=== PATIENT | male | born 1960 | race Caucasian/White ===

== ENCOUNTER 2020-09-09 14:03 | Outpatient (CLI) | payer BC, SELFPAY ==
[2020-09-09 14:26] LABS: Basophils Percent Auto 0.7 % (0.2-1.2); Eosinophils Absolute Auto 0.2 K/mm3 (0-0.3); Eosinophils Percent Auto 4.8 % (0-4.4); Hematocrit 42.1 % (42.0-52.0); Hemoglobin 14.6 g/dL (14.0-18.0); Immature Granulocyte Absolute 0.02 K/mm3 (0.00-0.031); Immature Granulocyte Percent A 0.4 % (0-0.5); Lymphocytes Absolute Auto 0.91 K/mm3 (0.9-3.2); Mean Corpuscular HGB Conc 34.7 g/dl (32-36); Mean Corpuscular Hemoglobin 31.4 pg (26-34); Mean Corpuscular Volume 90.5 fl (80-100); Mean Platelet Volume 8.8 fl (7.4-10.4); Monocytes Absolute Auto 0.5 K/mm3 (0.1-0.6); Monocytes Percent Auto 10.4 % (2.6-8.5); Neutrophils Absolute Auto 2.9 K/mm3 (1.3-6.7); Neutrophils Percent Auto 63.7 % (45.5-73.1); Platelet Count Result 233 k/mm3 (150-375); Red Blood Count 4.65 M/mm3 (4.6-6.20); Red Cell Distribution Width 12.4 % (11.5-14.5); White Blood Count 4.5 K/mm3 (4.5-10.0)
[2020-09-09 17:05] LABS: Iron 189 ug/dL (49-181)
[2020-09-09 17:12] LABS: Alanine Aminotransferase 15 U/L (4-50); Albumin Level 4.5 g/dL (3.5-5.1); Alkaline Phosphatase 43 U/L (38-126); Anion Gap 9 mmol/L (8-16); Aspartate Amino Transferase 28 U/L (17-59); Bilirubin,Total 0.9 mg/dL (0.2-1.3); Blood Urea Nitrogen 9 mg/dL (9-20); Calcium 9.8 mg/dL (8.4-10.2); Carbon Dioxide 27 mmol/L (22-30); Chloride 104 mmol/L (98-107); Estimated Glomerular Filt Rate > 60; Glucose 91 mg/dL (75-110); Potassium 4.5 mmol/L (3.4-5.0); Sodium 140 mmol/L (137-145)
[2020-09-09 17:19] LABS: Percent Iron Saturation 58 % (20-50)
[2020-09-09 18:13] LABS: Folic Acid 11.1 ng/mL (2.76->20)
== END 2020-09-09 14:04 | disposition home or self-care (01) ==
PROVIDERS: PCP Internal Medicine; Visit Provider Internal Medicine Hematology & Oncology
DX: D72.819 Decreased white blood cell count, unspecified (principal)
CPT/HCPCS: 36415; 80053; 82607; 82728; 82746; 83540; 83550; 85025; 86038

== ENCOUNTER 2020-09-28 09:38 | Outpatient (CLI) | payer BC, SELFPAY ==
--- NOTE | ~2020-09-28 | US_ITS ---
EXAMINATION: US abdomen complete EXAM DATE: 09/28/2020 11:22 INDICATION: Leukopenia. TECHNIQUE: Multiple grayscale and Doppler images of the complete abdomen were obtained (by a technolo gist who performed the scan) and subsequently reviewed. There is no prior study for comparison. FINDINGS: The abdominal aorta is normal in caliber. Visualized portion IVC is patent. The pancreatic head a nd body are normal in appearance. The pancreatic tail is not visualized. Mildly echogenic liver parenchyma, hepatic steatosis. There are no focal liver lesions identified. There is no evidence of intrahepatic biliary duct dilation. Portal venous flow was seen in the hepa topedal, normal direction and has normal Doppler waveform. Common bile duct measures 2 mm, which is normal. The gallbladder wall is normal in thickness, with ex pected amount of distention. No sonographic evidence of pericholecystic fluid. There is no cholelit hiases. Technologist performing exam reports patient did not demonstrate sonographic Godinez's sign. Please note that this sign is less reliable in patients who have received pain medication. Right kidney: There is normal contour and echogenicity. It measures 9.9 x 5.0 x 5.3 centimeters. T here are no focal renal lesions identified. There is no hydronephrosis. Left kidney: There is normal contour and echogenicity. It measures 10.3 x 5.4 x 4.8 centimeters. Th ere is a 3.6 cm cyst. There is no hydronephrosis. The spleen measures 9.4 centimeters and is morphologically normal. IMPRESSION: 1. Unremarkable complete abdominal ultrasound exam. Reviewed, dictated and finalized at location [facility]. [facility]
== END 2020-09-28 09:39 | disposition home or self-care (01) ==
PROVIDERS: PCP Internal Medicine; Visit Provider Internal Medicine Hematology & Oncology
DX: D72.819 Decreased white blood cell count, unspecified (principal)
CPT/HCPCS: 76700

== ENCOUNTER 2023-03-02 12:52 | Outpatient (CLI) | payer BC, SELFPAY ==
[2023-03-02 13:21] LABS: Basophils Absolute Auto 0.1 K/mm3 (0.0-0.1); Basophils Percent Auto 0.7 % (0.2-1.2); Eosinophils Absolute Auto 0.3 K/mm3 (0-0.3); Eosinophils Percent Auto 4.2 % (0-4.4); Hematocrit 45.3 % (42.0-52.0); Hemoglobin 15.8 g/dL (14.0-18.0); Immature Granulocyte Absolute 0.02 K/mm3 (0.00-0.031); Immature Granulocyte Percent A 0.3 % (0-0.5); Lymphocytes Absolute Auto 1.01 K/mm3 (0.9-3.2); Lymphocytes Percent Auto 13.4 % (18.3-44.2); Mean Corpuscular HGB Conc 34.9 g/dl (32-36); Mean Corpuscular Hemoglobin 31.7 pg (26-34); Mean Platelet Volume 8.8 fl (7.4-10.4); Monocytes Absolute Auto 0.7 K/mm3 (0.1-0.6); Monocytes Percent Auto 9.3 % (2.6-8.5); Neutrophils Absolute Auto 5.5 K/mm3 (1.3-6.7); Neutrophils Percent Auto 72.1 % (45.5-73.1); Platelet Count Result 281 k/mm3 (150-375); Red Blood Count 4.98 M/mm3 (4.6-6.20); Red Cell Distribution Width 11.7 % (11.5-14.5); White Blood Count 7.6 K/mm3 (4.5-10.0)
[2023-03-02 14:53] LABS: Alanine Aminotransferase 28 U/L (6-50); Albumin Level 4.9 g/dL (3.5-5.1); Alkaline Phosphatase 96 U/L (38-126); Anion Gap 9 mmol/L (8-16); Aspartate Amino Transferase 29 U/L (17-59); Bilirubin,Total 0.9 mg/dL (0.2-1.3); Blood Urea Nitrogen 13 mg/dL (9-20); Calcium 9.7 mg/dL (8.4-10.2); Carbon Dioxide 27 mmol/L (22-30); Chloride 100 mmol/L (98-107); Estimated Glomerular Filt Rate > 60; Glucose 111 mg/dL (65-110); Potassium 4.5 mmol/L (3.4-5.0); Sodium 136 mmol/L (137-145)
[2023-03-02 15:54] LABS: Iron 139 ug/dL (49-181)
[2023-03-02 16:12] LABS: Percent Iron Saturation 52 % (20-50)
== END 2023-03-02 12:53 | disposition home or self-care (01) ==
LOC: ANHLAB 12:53
PROVIDERS: PCP Internal Medicine; Visit Provider Internal Medicine Hematology & Oncology
DX: E83.110 Hereditary hemochromatosis (principal)
CPT/HCPCS: 36415; 80053; 82728; 83540; 83550; 85025

== ENCOUNTER 2023-03-22 10:25 | Outpatient (CLI) | payer BC, SELFPAY | END 2023-04-05 09:22 | disposition home or self-care (01) | PROVIDERS: PCP Internal Medicine; Visit Provider Internal Medicine | DX: R73.9 Hyperglycemia, unspecified (principal); Z79.899 Other long term (current) drug therapy; Z12.5 Encounter for screening for malignant neoplasm of prostate | CPT/HCPCS: 80061; 83036; 84153; 84439; 84443; G0103 ==

== ENCOUNTER 2023-09-03 09:23 | Outpatient (CLI) | payer BC, SELFPAY ==
[2023-09-03 09:43] LABS: Basophils Percent Auto 0.8 % (0.2-1.2); Eosinophils Absolute Auto 0.4 K/mm3 (0-0.3); Eosinophils Percent Auto 8.1 % (0-4.4); Hematocrit 42.3 % (42.0-52.0); Immature Granulocyte Absolute 0.01 K/mm3 (0.00-0.031); Immature Granulocyte Percent A 0.2 % (0-0.5); Lymphocytes Absolute Auto 0.99 K/mm3 (0.9-3.2); Lymphocytes Percent Auto 18.6 % (18.3-44.2); Mean Corpuscular HGB Conc 35.5 g/dl (32-36); Mean Corpuscular Hemoglobin 32.7 pg (26-34); Mean Corpuscular Volume 92.2 fl (80-100); Mean Platelet Volume 8.6 fl (7.4-10.4); Monocytes Absolute Auto 0.6 K/mm3 (0.1-0.6); Monocytes Percent Auto 11.5 % (2.6-8.5); Neutrophils Absolute Auto 3.2 K/mm3 (1.3-6.7); Neutrophils Percent Auto 60.8 % (45.5-73.1); Platelet Count Result 180 k/mm3 (150-375); Red Blood Count 4.59 M/mm3 (4.6-6.20); Red Cell Distribution Width 11.9 % (11.5-14.5); White Blood Count 5.3 K/mm3 (4.5-10.0)
[2023-09-03 11:36] LABS: Iron 114 ug/dL (49-181)
[2023-09-03 11:41] LABS: Alanine Aminotransferase 28 U/L (6-50); Albumin Level 4.5 g/dL (3.5-5.1); Alkaline Phosphatase 68 U/L (38-126); Anion Gap 5 mmol/L (8-16); Aspartate Amino Transferase 28 U/L (17-59); Bilirubin,Total 0.6 mg/dL (0.2-1.3); Blood Urea Nitrogen 12 mg/dL (9-20); Calcium 9.3 mg/dL (8.4-10.2); Carbon Dioxide 29 mmol/L (22-30); Chloride 101 mmol/L (98-107); Estimated Glomerular Filt Rate > 60; Glucose 118 mg/dL (65-110); Potassium 4.7 mmol/L (3.4-5.0); Sodium 135 mmol/L (137-145)
[2023-09-03 11:50] LABS: Percent Iron Saturation 46 % (20-50)
== END 2023-09-03 09:24 | disposition home or self-care (01) ==
PROVIDERS: PCP Internal Medicine; Visit Provider Internal Medicine Hematology & Oncology
DX: E83.110 Hereditary hemochromatosis (principal)
CPT/HCPCS: 36415; 80053; 82728; 83540; 83550; 85025

== ENCOUNTER 2024-10-17 11:04 | Outpatient (CLI) | payer BC, SELFPAY ==
[2024-10-17 11:19] LABS: Basophils Absolute Auto 0.1 K/mm3 (0.0-0.1); Basophils Percent Auto 0.9 % (0.2-1.2); Eosinophils Absolute Auto 0.5 K/mm3 (0-0.3); Eosinophils Percent Auto 8.3 % (0-4.4); Hematocrit 43.9 % (42.0-52.0); Hemoglobin 15.7 g/dL (14.0-18.0); Immature Granulocyte Absolute 0.01 K/mm3 (0.00-0.031); Immature Granulocyte Percent A 0.2 % (0-0.5); Lymphocytes Absolute Auto 1.08 K/mm3 (0.9-3.2); Mean Corpuscular HGB Conc 35.8 g/dl (32-36); Mean Corpuscular Hemoglobin 32.6 pg (26-34); Mean Corpuscular Volume 91.3 fl (80-100); Mean Platelet Volume 8.5 fl (7.4-10.4); Monocytes Absolute Auto 0.6 K/mm3 (0.1-0.6); Monocytes Percent Auto 10.7 % (2.6-8.5); Neutrophils Absolute Auto 3.2 K/mm3 (1.3-6.7); Neutrophils Percent Auto 59.9 % (45.5-73.1); Platelet Count Result 212 k/mm3 (150-375); Red Blood Count 4.81 M/mm3 (4.6-6.20); Red Cell Distribution Width 11.9 % (11.5-14.5); White Blood Count 5.4 K/mm3 (4.5-10.0)
[2024-10-17 13:37] LABS: Iron 165 ug/dL (49-181)
[2024-10-17 13:38] LABS: Alanine Aminotransferase 40 U/L (6-50); Albumin Level 4.7 g/dL (3.5-5.1); Alkaline Phosphatase 84 U/L (38-126); Anion Gap 6 mmol/L (4-12); Aspartate Amino Transferase 61 U/L (17-59); Bilirubin,Total 0.9 mg/dL (0.2-1.3); Blood Urea Nitrogen 12 mg/dL (9-20); Calcium 9.7 mg/dL (8.4-10.2); Carbon Dioxide 29 mmol/L (22-30); Chloride 100 mmol/L (98-107); Estimated Glomerular Filt Rate > 60; Glucose 113 mg/dL (65-110); Potassium 4.8 mmol/L (3.4-5.0); Sodium 135 mmol/L (137-145)
[2024-10-17 13:47] LABS: Percent Iron Saturation 65 % (20-50)
== END 2024-10-17 11:05 | disposition home or self-care (01) ==
LOC: ANHLAB 11:06
PROVIDERS: PCP Internal Medicine; Visit Provider Internal Medicine Hematology & Oncology
DX: E83.110 Hereditary hemochromatosis (principal)
CPT/HCPCS: 36415; 80053; 82728; 83540; 83550; 85025

== ENCOUNTER 2025-04-23 10:06 | Outpatient (CLI) | payer BC, SELFPAY ==
--- OUTSIDE RECORDS SUMMARY | 2025-04-23 10:10 | XMS_ITS | Clinical Summary ---
Author Organization [facility] Address [address] [place] [phone] Care Team Providers Care Theoretical Physicist Name Role Phone Jamey Balderas MD Primary Care Provide r Allergies No known active allergies Medications aspirin 81 mg enteric coated tabletIndication s:cerebral ischemia Take 1 tablet (81 mg total) by mouth daily 02/21/2025 02/22/20 26 Active atorvastatin (LIPITOR) 40 mg tabletIndication s:Secondary Stroke Prevention Take 2 tablets (80 mg total) by mouth daily 02/21/2025 02/22/20 26 Active losartan (COZAAR) 50 mg tablet Take 1 tablet (50 mg total) by mouth daily 02/20/2025 02/21/20 26 Active isosorbide mononitrate ER (IMDUR) 30 mg 24 hr tablet Take 1 tablet (30 mg total) by mouth daily 02/20/2025 02/21/20 26 Active Active Problems Problem Noted Date Diagnosed Date Vision changes 02/19/2025 Encounters Date Type Department Care Team Description 03/16/2025 9:13 AM CDT - 03/16/2025 11:59 PM CDT Hospital Encounter [facility] ` [address] [place] [id number] Fatty (change of) liver, not elsewhere classified Discharge Disposition: Discharge to home or self care 02/19/2025 2:03 PM CDT - 02/20/2025 12:56 PM CDT Hospital Encounter [address] [phone] Austen Lewis MD Holder, Derek Lance, MD Vision changes (Primary Dx); Stenosis of cerebral artery Discharge Disposition: Discharge to home or self care 02/19/2025 Ophth Exam [facility] [address] [place] [phone] French Saenz MD from Last 3 Months Family History Medical History Relation Name Comments Cancer Other Family history of Cancer, unknown; Diabetes Other Family history of Diabetes mellitus; Heart disease Other Family history of Heart problems; Stroke Other Family history of Stroke; Relation Name Status Comments Other Social History Tobacco Use Types Packs/Day Years Used Date Smoking Tobacco: Never Smokeless Tobacco: Never Tobacco Cessation:Counseling Given: No PHQ-2 Answer Date Recorded PHQ-2 Total Score 0 02/20/2025 PHQ-9 Answer Date Recorded PHQ-9 Total Score 0 02/20/2025 Personal Safety Answer Date Recorded Have you ever been in or are you currently in a harmful physical or emotional relationship or is someone making you feel afraid or unsafe? 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 Gender Identity Not on file Sexual Orientation Not on file Obstetrics History Last Filed Vital Signs Vital Sign Reading Time Taken Comments Blood Pressure 158/85 02/20/2025 12:00 PM CDT Pulse 82 02/20/2025 12:00 PM CDT Temperature 36.8 C (98.2 F) 02/20/2025 12:00 PM CDT Respiratory Rate 18 02/20/2025 12:00 PM CDT Oxygen Saturation 96% 02/20/2025 12:00 PM CDT Inhaled Oxygen Concentration - - Weight 85.8 kg (189 lb 2.5 oz) 02/20/2025 6:45 A M CDT Height 180.3 cm (5' 11) 02/20/2025 6:45 AM CDT Body Mass Index 26.38 02/20/2025 6:45 AM CDT Plan of Treatment Health Maintenance Due Date Last Done Comments Colon Cancer Screening-Colonoscopy 1960 Hepatitis C Screening 1960 Prostate Cancer Screening-PSA 1960 Hepatitis B Screening 1978 Regular Well Visit/Exam 18-64 1978 Pneumococcal vaccine <65 (2 of 2 - PCV) 04/26/2009 04/26/2008 Zoster Vaccine (2 of 3) 03/16/2014 01/19/2014 Covid-19 Vaccine (3 - 2023-2 5 season) 2024 07/21/2021, 07/13/2021 Influenza Vaccine (Season Ended) 2025 10/28/2021, 09/23/2020, 09/22/2019, Additional history exists Depression Screening 02/19/2026 02/19/2025, 02/20/20 DTaP/Tdap/Td Vaccine (2 - Td or Tdap) 01/15/2028 01/15/2018 Procedures Procedure Name Priority Date/Time Associated Diagnosis Comments US RUQ Schedule Routine, Read Routine (OP Routine) 03/16/2025 10:18 AM CDT Fatty (change of) liver, not elsewhere classified TRANSTHORACIC ECHO (TTE) COMPLETE W DOPPLER/CF W CONTRAST Routine 02/20/2025 9:42 AM CDT DRUGS OF ABUSE SCREEN, URINE WITHOUT CONFIRMATION STAT 02/19/2025 9:59 PM CDT URINALYSIS AND REFLEX TO MICROSCOPIC AND CULTURE STAT 02/19/2025 9:59 PM CDT MRI BRAIN WO CONTRAST ED 02/19/2025 7:22 PM CDT CTA HEAD NECK W WO CONTRAST ED 02/19/2025 4:30 PM CDT POCUS OCULAR 02/19/2025 3:39 PM CDT TROPONIN I HIGH-SENSITIVITY 2-HOUR Timed 02/19/2025 2:22 PM CDT ECG 12-LEAD STAT 02/19/2025 1:[address] STROKE PROTOCOL WO CONTRAST Critical/Life-T hreatening 02/19/2025 12:44 PM CDT POCT GLUCOSE DEVICE Routine 02/19/2025 1 2:44 PM CDT POCT PROTHROMBIN TIME, WHOLE BLOOD Routine 02/19/2025 12:42 PM CDT HEMOGLOBIN A1C STAT 02/19/2025 12:38 PM CDT LIPID PANEL STAT 02/19/2025 12:38 PM CDT EGFR STAT 02/19/2025 12:38 PM CDT DIFFERENTIAL AUTO STAT 02/19/2025 12: 38 PM CDT TROPONIN I HIGH-SENSITIVITY SERIES (BASELINE, 2HR, 4HR, 6HR) STAT 02/19/2025 12:38 PM CDT APTT STAT 02/19/2025 12:38 PM CDT COMPREHENSIVE METABOLIC PANEL STAT 02/19/2025 12:38 PM CDT CBC WITH AUTO DIFFERENTIAL STAT 02/19/2025 12:38 PM CDT from Last 3 Months Results * US RUQ (03/16/2025 10:18 AM CDT) Anatomical Region Laterality Modality Abdomen N/A Ultrasound 03/16/2025 10:3 4 AM CDT Impressions 03/16/2025 10:34 AM CDT Increased echogenicity of the liver parenchyma, most consistent with hepatic steatosis. Electronically signed by: Shikha Palaciso M.D. Narrative 03/16/2025 10:34 AM CDT EXAMINATION: US RUQ HISTORY: The patient is a 64-year-old male who presents with a history of hepatic steatosis. TECHNIQUE: Transverse and sagittal images were obtained with grayscale imaging, color Doppler imaging and spectral waveform analysis. FINDINGS: The gallbladder is normal in appearance with no calculi within it. No gallbladder wall thickening is seen nor is any pericholecystic fluid noted. Biliary tree not dilated, with the common duct measuring 4.5 mm in diameter. The liver measures 16.7 cm in sagittal length. Echotexture is diffusely increased. No focal liver lesions seen. Portal vein patent with normal hepatopedal flow within it. Pancreas normal in size and echotexture. The right kidney measures 11.2 x 6.2 cm in size and has a normal sonographic appearance. The abdominal aorta and inferior vena cava are normal in appearance. No ascites seen. Procedure Note Shikha Palacios MD - 03/16/2025 EXAMINATION: US RUQ HISTORY: The patient is a 64-year-old male who presents with a history of hepatic steatosis. TECHNIQUE: Transverse and sagittal images were obtained with grayscale imaging, color Doppler imaging and spectral waveform analysis. FINDINGS: The gallbladder is normal in appearance with no calculi within it. No gallbladder wall thickening is seen nor is any pericholecystic fluid noted. Biliary tree not dilated, with the common duct measuring 4.5 mm in diameter. The liver measures 16.7 cm in sagittal length. Echotexture is diffusely increased. No focal liver lesions seen. Portal vein patent with normal hepatopedal flow within it. Pancreas normal in size and echotexture. The right kidney measures 11.2 x 6.2 cm in size and has a normal sonographic appearance. The abdominal aorta and inferior vena cava are normal in appearance. No ascites seen. IMPRESSION: Increased echogenicity of the liver parenchyma, most consistent with hepatic steatosis. Electronically signed by: Shikha Palacios M.D. us Caitlin Abel MD IMG US PROCEDURES Final R esult * TRANSTHORACIC ECHO (TTE) COMPLETE W DOPPLER/CF W CONTRAST (02/20/2025 9:42 AM CDT) Anatomical Region Laterality Modality Ultrasound 02/20/2025 9:01 AM CDT Narrative 02/20/2025 10:52 AM CDT [facility] [place] [address] Transthoracic Echocardiographic Report Patient Name: DAMON UERÑA Samira : 1960 (64y 4m) Gender: M Study Date: 02/20/2025 09:01:20 AM Ht(Inch): 71 Wt(Lb): 188.93 BSA: 2.07 Roadside Mechanic: Janiya Hilton RDCSPUNXSUTAWNEY AREA HOSPITALJames Location: [id number] Order Provider: SCOOTER KRISHNAMURTHY Heart Rate: 83 BMI: 26.35 BP: 136 / 74 Ref Provider: SCOOTER KRISHNAMURTHY PROCEDURES: Echocardiographic Report: Transthoracic complete echo with strain imaging and contrast, 2D, spectral and tissue Doppler, color flow Doppler, M-mode. Contrast: Contrast Enhancement was Employed: After initial imaging due to sub- optimal quality related to co-morbidity defined by patient's body habitus. 0.4 ml Optison Administered, (2.6 ml wasted). INDICATIONS: Stroke; follow-up. CONCLUSIONS: 1. Normal left ventricular cavity size with mild concentric LV remodeling. Grade I diastolic dysfunction (normal LA pressure). Low normal global longitudinal strain. 2. Normal right ventricular size and systolic function. 3. Normal aorta, LA, RA and IVC. 4. Mild TR and KY. Unable to assess PA pressure, likely normal. 5. No pericardial effusion. 6. No thrombus or vegetations seen. No PFO detected by color Doppler. COMPARISONS: No previous study available for comparison. ATTESTATION: I have personally reviewed and interpreted this study without fellow or resident. - DISCLAIMER: The study images and the final report will be retained in the patient chart by the Echo Laboratory for the legally required time period. This chart constitutes the legal record of any testing performed. FINDINGS: Left Ventricle: Normal left ventricular cavity size based on 2D measurements. Concentric LV remodeling. Grade I diastolic dysfunction (normal LA pressure). Low normal global longitudinal strain. The LV global strain is: -16.0 %. Right Ventricle: Normal right ventricular size. Normal right ventricular systolic function. Left Atrium: The left atrium is normal in size. Right Atrium: The right atrium is normal in size. Mitral Valve: Normal Mitral Valve Structure. Mitral valve leaflets appear mildly thickened. No mitral regurgitation. No stenosis present. Aortic Valve: Normal trileaflet aortic valve. Mildly thickened aortic valve leaflets. No aortic regurgitation. No aortic valve stenosis. The mean transaortic gradient is 3 mmHg. The aortic valve area by the continuity equation (using VTI) is 2.83 cm2. Aortic valve dimensionless index is 0.82. Tricuspid Valve: Normal tricuspid valve structure. Mild tricuspid regurgitation. No tricuspid valve stenosis. Pulmonic Valve: Normal pulmonic valve structure. Mild pulmonic regurgitation. No pulmonic valve stenosis present. Pericardium: Normal pericardium without pericardial effusion. Aorta: Normal aortic root size at sinuses of Valsalva. IVC: IVC is normal in size. The IVC was <2.1 cm and collapsibility >50%. (est. RA pressure 0-5 mmHg). PASP: Unable to determine PASP due to inadequate TR jet. Rhythm: Normal Sinus rhythm was seen during the study. MEASUREMENTS: 2D/MM Value Range Doppler Value Range LVIDd 2D 4.60 cm [ 4.20 - 5.80 ] AV Peak Marcus 1.1 m/s [ 1.0 - 1.7 ] LVIDs 2D 2.40 cm [ 2.50 - 4.00 ] AV Peak PG 4.84 mmHg IVSd 2D 1.12 cm [ 0.60 - 1.00 ] AV Mean PG 3 mmHg LVPWd 2D 1.13 cm [ 0.60 - 1.00 ] AV VTI 19.8 cm LV Thickness Ratio 1.0 LVOT Peak Marcus 0.8 m/s [ 0.7 - 1.1 ] LV FS 2D 47.88 % [ 25.00 - 43.00 ] LVOT Peak PG 2.56 mmHg LV Mass 2D 190.15 g LVOT Mean PG 2 mmHg LV Mass Index 2D 91.86 g/m2 LVOT VTI 16.2 cm RWT 0.49 LVOT Diam 2.10 cm LV GLS -16.0 % [ -25.0 - -18.0 ] WICHO VTI 2.83 cm2 LA Length 4C 5.34 cm LVOT/AV VTI 0.82 - Dimensionless index (DVI) LA Length 2C 5.38 cm MV E Peak Marcus 0.6 m/s [ 0.6 - 1.3 ] LA Volume BP 48.38 ml MV A Peak Marcus 0.7 m/s [ 1.0 - 1.2 ] LA Volume Index 23.37 ml/m2 [ 16.00 - 34.00 ] MV E/A 0.8 ratio [ 0.8 - 1.5 ] RV Base Dimen 2D 3.4 cm [ 2.5 - 4.2 ] MV Decel Time 251.32 msec [ 104.00 - 258.00 ] TAPSE 2.09 cm [ 1.71 - 5.00 ] Med E` Marcus 8.8 cm/sec [ 8.0 - 25.0 ] RA Volume 23.60 ml Lat E` Marcus 7.8 cm/sec [ 10.0 - 25.0 ] RA Volume Index 11.40 ml/m2 Average E/E` 7.23 AoR Diam 2D 3.40 cm [ 3.10 - 3.70 ] RV S` 13.67 cm/sec Ao Root Index 1.64 cm/m2 [ 1.00 - 2.00 ] Electronically Signed By: Josesito Guerra MD 02/20/2025 10:51:11 AM CDT Procedure Note Josesito Guerra MD - 02/20/2025 [facility] [place] [address] Transthoracic Echocardiographic Report Patient Name: DAMON UREÑA D : 1960 (64y 4m) Gender: M Study Date: 02/20/2025 09:01:20 AM Ht(Inch): 71 Wt(Lb): 188.93 BSA: 2.07 Roadside Mechanic: Janiya Hilton RDCS, RCCS Location: [id number] OrderProvider: SCOOTER KRISHNAMURTHY Heart Rate: 83 BMI: 26.35 BP: 136 / 74 Ref Provider: SCOOTER KRISHNAMURTHY PROCEDURES: Echocardiographic Report: Transthoracic complete echo with strain imagingand contrast, 2D, spectral and tissue Doppler, color flow Doppler, M-mode. Contrast: Contrast Enhancement was Employed: After initial imaging due tosub- optimal quality related to co-morbidity defined by patient's body habitus. 0.4 mlOptison Administered, (2.6 ml wasted). INDICATIONS: Stroke; follow-up. CONCLUSIONS: 1. Normal left ventricular cavity size with mild concentric LV remodeling.Grade I diastolic dysfunction (normal LA pressure). Low normal global longitudinalstrain. 2. Normal right ventricular size and systolic function. 3. Normal aorta, LA, RA and IVC. 4. Mild TR and KY. Unable to assess PA pressure, likely normal. 5. No pericardial effusion. 6. No thrombus or vegetations seen. No PFO detected by color Doppler. COMPARISONS: No previous study available for comparison. ATTESTATION: I have personally reviewed and interpreted this study without fellow orresident. - DISCLAIMER: The study images and the final report will be retained in the patientchart by the Echo Laboratory for the legally required time period. This chart constitutesthe legal record of any testing performed. FINDINGS: Left Ventricle: Normal left ventricular cavity size based on 2Dmeasurements. Concentric LV remodeling. Grade I diastolic dysfunction (normal LA pressure). Lownormal global longitudinal strain. The LV global strain is: -16.0 %. Right Ventricle: Normal right ventricular size. Normal right ventricularsystolic function. Left Atrium: The left atrium is normal in size. Right Atrium: The right atrium is normal in size. Mitral Valve: Normal Mitral Valve Structure. Mitral valve leaflets appearmildly thickened. No mitral regurgitation. No stenosis present. Aortic Valve: Normal trileaflet aortic valve. Mildly thickened aorticvalve leaflets. No aortic regurgitation. No aortic valve stenosis. The mean transaorticgradient is 3 mmHg. The aortic valve area by the continuity equation (using VTI) is 2.83 cm2.Aortic valve dimensionless index is 0.82. Tricuspid Valve: Normal tricuspid valve structure. Mild tricuspidregurgitation. No tricuspid valve stenosis. Pulmonic Valve: Normal pulmonic valve structure. Mild pulmonicregurgitation. No pulmonic valve stenosis present. Pericardium: Normal pericardium without pericardial effusion. Aorta: Normal aortic root size at sinuses of Valsalva. IVC: IVC is normal in size. The IVC was <2.1 cm and collapsibility >50%.(est. RA pressure 0-5 mmHg). PASP: Unable to determine PASP due to inadequate TR jet. Rhythm: Normal Sinus rhythm was seen during the study. MEASUREMENTS: 2D/MM Value Range DopplerValue Range LVIDd 2D 4.60 cm [ 4.20 - 5.80 ] AV Peak Vel1.1 m/s [ 1.0 - 1.7 ] LVIDs 2D 2.40 cm [ 2.50 - 4.00 ] AV Peak PG4.84 mmHg IVSd 2D 1.12 cm [ 0.60 - 1.00 ] AV Mean PG3 mmHg LVPWd 2D 1.13 cm [ 0.60 - 1.00 ] AV VTI19.8 cm LV Thickness Ratio 1.0 LVOT Peak Vel0.8 m/s [ 0.7 - 1.1 ] LV FS 2D 47.88 % [ 25.00 - 43.00 ] LVOT Peak PG2.56 mmHg LV Mass 2D 190.15 g LVOT Mean PG2 mmHg LV Mass Index 2D 91.86 g/m2 LVOT VTI16.2 cm RWT 0.49 LVOT Diam2.10 cm LV GLS -16.0 % [ -25.0 - -18.0 ] WICHO VTI2.83 cm2 LA Length 4C 5.34 cm LVOT/AV VTI0.82 - Dimensionless index (DVI) LA Length 2C 5.38 cm MV E Peak Vel0.6 m/s [ 0.6 - 1.3 ] LA Volume BP 48.38 ml MV A Peak Vel0.7 m/s [ 1.0 - 1.2 ] LA Volume Index 23.37 ml/m2 [ 16.00 - 34.00 ] MV E/A0.8 ratio [ 0.8 - 1.5 ] RV Base Dimen 2D 3.4 cm [ 2.5 - 4.2 ] MV Decel Tmjg618.32 msec [ 104.00 - 258.00 ] TAPSE 2.09 cm [ 1.71 - 5.00 ] Med E` Vel8.8 cm/sec [ 8.0 - 25.0 ] RA Volume 23.60 ml Lat E` Vel7.8 cm/sec [ 10.0 - 25.0 ] RA Volume Index 11.40 ml/m2 Average E/E`7.23 AoR Diam 2D 3.40 cm [ 3.10 - 3.70 ] RV S`13.67 cm/sec Ao Root Index 1.64 cm/m2 [ 1.00 - 2.00 ] Electronically Signed By: Josesito Guerra MD 02/20/2025 10:51:11 AM CDT us Scooter Krishnamurthy MD CV ECHO PROCEDURES Final R esult * (ABNORMAL) Urinalysis reflex to microscopic and culture Urine (02/19/2025 9:59 PM CDT) Color, ur Straw Yellow Clarity, ur Clear Clear [facility] Specific gravity, ur 1.037(H) 1.003 - 1.030 [facility] pH, urine 6.5 [facility] Comment: Interpretive Data U rine pH is affected by diet, medications, systemic acid-base disturbances, and renal tubular function. pH may affect urinary stone formation. For example, urine pH below 6.0 may help reduce the tendency for calcium phosphate stones and pH greater than 6.0 may reduce the tendency for uric acid stone formation. Source: [email or web address] Current Interpretive Data was last revised on 2017 Protein, ur ql Negative Negative [facility] Glucose, ur ql Negative Negative [facility] Ketones, ur Negative Negative [facility] Bilirubin, ur Negative Negative [facility] Blood, ur Negative Negative [facility] Urobilinogen, ur <2.0 <2.0 mg/dL [facility] Nitrite, ur Negative Negative [facility] Leukocyte esterase, ur Negative Negative [facility] UA reflex comment Reflex conditions for microscopic UA and culture not met. [facility] Urine 02/19/2025 9:59 PM CDT 02/19/2025 10:39 PM CDT us Scooter Krishnamurthy MD LAB MICROBIOLOGY - GENERAL ORDERABLES Final Result [facility] Department [place] [address] * Drugs of Abuse Screen, Urine without Confirmation (02/19/2025 9:59 PM CDT) Pathologist [facility] Amphetamine, ur Not Detected CutOff 500ng/mL Comment: Interpretive Data - Amphetamines: Samples containing greater than 500 ng/mL d-methamphetamine or other cross-reacting amphetamine compounds are reported as positive. Amphetamine immunoassays are subject to significant false positive rates due to cross-reactivity of non-amphetamine drugs. Confirmatory testing required for definitive results. Current Interpretive Data was last reviewed 2023. Barbiturates, ur Not Detected CutOff 200ng/mL [facility] Comment: Interpretive Data - Barbiturates: Samples containing greater than 200 ng/mL secobarbital or other cross-reacting barbiturate compounds are reported as positive. False positive and false negative results are possible. Confirmatory testing required for definitive results. Current Interpretive Data was last reviewed 2023. Benzodiazepines, ur Not Detected CutOff 100ng/mL [facility] Comment: Interpretive Data - Benzodiazepines: Samples containing greater than 100 ng/mL nordiazepam or other cross-reacting compounds are reported as positive. False positive and false negative results are possible. Confirmatory testing required for definitive results. Current Interpretive Data was last reviewed 2023. Cannabinoids, ur Not Detected CutOff 50 ng/mL [facility] Comment: Interpretive Data - Cannabinoids: Samples containing greater than 50 ng/mL delta-9 THC -COOH or other cross- reacting compounds are reported as positive. False positive and false negative results are possible. Confirmatory testing required for definitive results. Current Interpretive Data was last reviewed 2023. Cocaine, ur Not Detected CutOff 150ng/mL [facility] Comment: Interpretive Data - Cocaine: Samples containing greater than 150 ng/mL benzoylecgonine or other cross- reacting compounds are reported as positive. False positive and false negative results are possible. Confirmatory testing required for definitive results. Current Interpretive Data was last reviewed 2023. Fentanyl, Ur Not Detected CutOff 5 ng/mL [facility] Comment: Interpretive Data - Fentanyl: Samples containing greater than 5 ng/mL norfentanyl, fentanyl, or other cross-reacting fentanyl compounds are reported as positive. False positive and false negative results are possible. Confirmatory testing required for definitive results. Current Interpretive Data was last reviewed 2024. Methadone, ur Not Detected CutOff 300ng/mL [facility] Comment: Interpretive Data - Methadone: Samples containing greater than 300 ng/mL d,l-methadone or other cross-reacting compounds are reported as positive. False positive and false negative results are possible. Confirmatory testing required for definitive results. Current Interpretive Data was last reviewed 2023. Opiates, ur Not Detected CutOff 300ng/mL [facility] Comment: Interpretive Data - Opiates: Samples containing greater than 300 ng/mL morphine or other cross-reacting compounds are reported as positive. False positive and false negative results are possible. Confirmatory testing required for definitive results. Current Interpretive Data was last reviewed 2023. Oxycodone, ur Not Detected CutOff 100ng/mL [facility] Comment: Interpretive Data - Oxycodone: Samples containing greater than 100 ng/mL oxycodone or other cross-reacting compounds are reported as positive. False positive and false negative results are possible. Confirmatory testing required for definitive results. Current Interpretive Data was last reviewed 2023. Phencyclidine, ur Not Detected CutOff 25 ng/mL [facility] Comment: Interpretive Data - Phencyclidine: Samples containing greater than 25 ng/mL phencyclidine or other cross-reacting compounds are reported as positive. False positive and false negative results are possible. Confirmatory testing required for definitive results. Current Interpretive Data was last reviewed 2023. Urine Creatinine 66 mg/dL [facility] Comment: Interpretive Data Urine Creatinine: < 10 mg/dL is extremely dilute = or > 10 but < 20 mg/dL is dilute = or > 20 mg/dL is normal Current Interpretive Data was last revised on 2018. Urine 02/19/2025 9:59 PM CDT 02/19/2025 10:41 PM CDT Narrative [facility] - 02/19/2025 11:13 PM CDT Drug of Abuse screening is performed by immunoassay for medical purposes only. This is not to be used for Pain Management purposes. us Scooter Krishnamurthy MD LAB URINE ORDERABLES Final Result [facility] Department [place] [address] * MRI Brain WO Contrast (02/19/2025 7:22 PM CDT) Anatomical Region Laterality Modality Head and Neck N/A Magnetic Resonan ce 02/20/2025 9:39 AM CDT Impressions 02/20/2025 12:26 PM CDT No acute intracranial abnormality. Dictated by: Frank Wayne M.D. The radiology attending physician has personally reviewed this study, and had reviewed and/or edited this written report and agrees with it. Electronically signed by: Garrick Malcolm MD Narrative 02/20/2025 12:26 PM CDT EXAMINATION: Magnetic resonance imaging (MRI) of the brain and brainstem without contrast HISTORY: Right eye vision change TECHNIQUE: Multiplanar multi-weighted MRI of the brain and brainstem was performed without intravenous contrast using the general brain protocol. COMPARISON: Same-day CTA FINDINGS: The scalp and calvarium are normal. The superior sagittal sinus demonstrates normal venous flow. The corpus callosum is normal in shape and signal intensity. The posterior fossa is unremarkable. The pituitary and sella are normal. The brainstem and craniocervical junction are unremarkable. Diffusion weighted images reveal no hyperintensities to suggest acute cerebral infarction. The susceptibility weighted sequences reveal no evidence of acute or chronic hemorrhage. Diffuse cerebral atrophy with proportional ex vacuo ventricular dilatation. Minimal white matter T2/FLAIR hyperintensities are nonspecific but most commonly due to chronic small vessel ischemia. The paranasal sinuses are normal. The visualized portions of the mastoids are unremarkable. The orbits appear normal. Normal flow voids are demonstrated in the carotid arteries and basilar artery. Known left MACHINE I ENGRAVER stenosis better appreciated on CTA. Procedure Note Garrick Malcolm MD - 02/20/2025 EXAMINATION: Magnetic resonance imaging (MRI) of the brain and brainstem without contrast HISTORY: Right eye vision change TECHNIQUE: Multiplanar multi-weighted MRI of the brain and brainstem was performed without intravenous contrast using the general brain protocol. COMPARISON: Same-day CTA FINDINGS: The scalp and calvarium are normal. The superior sagittal sinus demonstrates normal venous flow. The corpus callosum is normal in shape and signal intensity. The posterior fossa is unremarkable. The pituitary and sella are normal. The brainstem and craniocervical junction are unremarkable. Diffusion weighted images reveal no hyperintensities to suggest acute cerebral infarction. The susceptibility weighted sequences reveal no evidence of acute or chronic hemorrhage. Diffuse cerebral atrophy with proportional ex vacuo ventricular dilatation. Minimal white matter T2/FLAIR hyperintensities are nonspecific but most commonly due to chronic small vessel ischemia. The paranasal sinuses are normal. The visualized portions of the mastoids are unremarkable. The orbits appear normal. Normal flow voids are demonstrated in the carotid arteries and basilar artery. Known left MACHINE I ENGRAVER stenosis better appreciated on CTA. IMPRESSION: No acute intracranial abnormality. Dictated by: Frank Wayne M.D. The radiology attending physician has personally reviewed this study, and had reviewed and/or edited this written report and agrees with it. Electronically signed by: Garrick Malcolm MD us Scooter Krishnamurthy MD IM MRI PROCEDURES Final R esult * CTA Head Neck W WO Contrast (02/19/2025 4:30 PM CDT) Anatomical Region Laterality Modality Head and Neck N/A Computed Tomogra phy 02/19/2025 4:43 PM CDT Impressions 02/19/2025 4:54 PM CDT 1. No acute intracranial hemorrhage or large vascular territory infract. 2. Severe stenosis of the left P1/P2 junction with segmental multifocal stenosis/thready opacification of distal left MACHINE I ENGRAVER branches. The above findings were communicated to Dr. Mar by Dr. Frank Wayne M.D. on 02/19/2025 4:42 PM. Dictated by: Frank Wayne M.D. The radiology attending physician has personally reviewed this study, and had reviewed and/or edited this written report and agrees with it. Electronically signed by: Iam Miranda MD Narrative 02/19/2025 4:54 PM CDT EXAMINATION: 1. Computed tomography angiography (CTA) of the head without and with contrast 2. Computed tomography angiography (CTA) of the neck with contrast HISTORY: Right vision loss TECHNIQUE: CT of the head was performed with images acquired from skull base to vertex without intravenous contrast. Computed tomographic angiography was obtained from the aortic arch to the vertex following the uneventful administration of intravenous contrast. 3D images of the CTA were generated on a dedicated workstation/traffic observer. Contrast information: 100 mL Optiray-350 IV COMPARISON: 02/19/2025 FINDINGS: HEAD: No acute intracranial hemorrhage. No mass effect or midline shift. The higgins-white differentiation is normal. Scattered white matter hypoattenuation is nonspecific but most commonly due to chronic small vessel ischemia. Diffuse cerebral atrophy with proportional ex vacuo ventricular dilatation. Orbits are normal. Paranasal sinuses are clear. NECK: 1 cm right thyroid nodule personal follow-up is required. The airway is patent. No cervical lymphadenopathy. The lung apices are clear. No suspicious osseous lesion. Multilevel cervical degenerative disc disease. CTA: The visualized aortic arch appears normal with normal configuration of the great vessels. The innominate artery and both subclavian arteries are normal in course and caliber. The common carotid arteries are normal in course and caliber with normal carotid bifurcations bilaterally. The course and caliber of the internal carotid arteries in the neck are normal. Mixed plaque at the carotid bifurcations without significant stenosis. Mixed plaque in the cavernous and communicating segment of the right internal carotid artery with mild stenosis. The ophthalmic arteries are patent. Moderate stenosis of the proximal right M1 segment. The anterior cerebral arteries are normal. The vertebral arteries are codominant. The basilar artery is normal. Severe stenosis of the left P1/P2 junction with segmental multifocal stenosis/thready opacification of distal left MACHINE I ENGRAVER There is no aneurysm or vascular malformation identified. Procedure Note Iam Miranda MD PhD - 02/19/2025 EXAMINATION: 1. Computed tomography angiography (CTA) of the head without and with contrast 2. Computed tomography angiography (CTA) of the neck with contrast HISTORY: Right vision loss TECHNIQUE: CT of the head was performed with images acquired from skull base to vertex without intravenous contrast. Computed tomographic angiography was obtained from the aortic arch to the vertex following the uneventful administration of intravenous contrast. 3D images of the CTA were generated on a dedicated workstation/traffic observer. Contrast information: 100 mL Optiray-350 IV COMPARISON: 02/19/2025 FINDINGS: HEAD: No acute intracranial hemorrhage. No mass effect or midline shift. The higgins-white differentiation is normal. Scattered white matter hypoattenuation is nonspecific but most commonly due to chronic small vessel ischemia. Diffuse cerebral atrophy with proportional ex vacuo ventricular dilatation. Orbits are normal. Paranasal sinuses are clear. NECK: 1 cm right thyroid nodule personal follow-up is required. The airway is patent. No cervical lymphadenopathy. The lung apices are clear. No suspicious osseous lesion. Multilevel cervical degenerative disc disease. CTA: The visualized aortic arch appears normal with normal configuration of the great vessels. The innominate artery and both subclavian arteries are normal in course and caliber. The common carotid arteries are normal in course and caliber with normal carotid bifurcations bilaterally. The course and caliber of the internal carotid arteries in the neck are normal. Mixed plaque at the carotid bifurcations without significant stenosis. Mixed plaque in the cavernous and communicating segment of the right internal carotid artery with mild stenosis. The ophthalmic arteries are patent. Moderate stenosis of the proximal right M1 segment. The anterior cerebral arteries are normal. The vertebral arteries are codominant. The basilar artery is normal. Severe stenosis of the left P1/P2 junction with segmental multifocal stenosis/thready opacification of distal left MACHINE I ENGRAVER There is no aneurysm or vascular malformation identified. IMPRESSION: 1. No acute intracranial hemorrhage or large vascular territory infract. 2. Severe stenosis of the left P1/P2 junction with segmental multifocal stenosis/thready opacification of distal left MACHINE I ENGRAVER branches. The above findings were communicated to Dr. Mar by Dr. Frank Wayne M.D. on 02/19/2025 4:42 PM. Dictated by: Frank Wayne M.D. The radiology attending physician has personally reviewed this study, and had reviewed and/or edited this written report and agrees with it. Electronically signed by: Iam Miranda MD Darell Mar MD IMG CT PROCEDURES Final Re sult * POCUS Ocular (02/19/2025 3:39 PM CDT) Anatomical Region Laterality Modality Other 02/19/2025 3:28 PM CDT Narrative 04/07/2025 12:46 AM CDT Performed by: Darell Mar Ocular : Exam Information: Exam type: Diagnostic Indication(s) for Exam: Vision change Findings: R Lens: Normally located R Vitreous body: Anechoic R Retinal contour: Normal R Optic nerve sheath diameter (ONSD): Normal Interpretation: No acute abnormalities identified Confirmatory study: Consult Electronically signed by Darell Mar on Monday, March 31, 2025 at 8:35 PM I have reviewed the images & the resident's interpretation. I agree with the findings. Images on file. Electronically signed by Austen Lewis on Monday, April 07, 2025 at 12:46 AM I have reviewed the images & the resident's interpretation. I agree with the findings. Images on file. Procedure Note Austen Lewis MD - 04/07/2025 Performed by: Darell Mar Ocular : Exam Information: Exam type: Diagnostic Indication(s) for Exam: Vision change Findings: R Lens: Normally located R Vitreous body: Anechoic R Retinal contour: Normal R Optic nerve sheath diameter (ONSD): Normal Interpretation: No acute abnormalities identified Confirmatory study: Consult Electronically signed by Darell Mar on Monday, March 31, 2025 at8:35 PM I have reviewed the images & the resident's interpretation. I agree withthe findings. Images on file. Electronically signed by Austen Lewis on Monday, April 07, 2025 at 12:46AM I have reviewed the images & the resident's interpretation. I agree withthe findings. Images on file. us Austen Lewis MD POCUS ORDERABLES Final Result * Troponin I high-sensitivity 2-hour (02/19/2025 2:22 PM CDT) Trop I hs 4 <=35 ng/L Comment: Interpretive Data For further hscTnI resources including the diagnostic algorithm and an aid in interpretation, copy and paste this link: https://bjhlab.testcatalog.org/show/[email or web address] Current Interpretive Data last revised 2020. Trop I hs delta 0 ng/L [facility] Trop I hs interp Insignificant [facility] Blood 02/19/2025 2:22 PM CDT 02/19/2025 2:32 PM CDT Josesito Dennison MD LAB BLOOD ORDERABLES Final Result Performing Organization Address [facility] de Phone Number [facility] Department [place] [address] * ECG 12-LEAD (02/19/2025 1:11 PM CDT) Narrative [facility] - 02/19/2025 1:11 PM CDT Josesito Dennison MD 02/19/2025 4:49 PM ECG 12 lead Date/Time: 02/19/2025 1:11 PM Performed by: Toña Thompsno MD Authorized by: Josesito Dennison MD Rate: ECG rate: 77 ECG rate assessment: normal Rhythm: Rhythm: sinus rhythm QRS: QRS axis: Normal Conduction: Conduction: normal ST segments: ST segments: Non-specific T waves: T waves: flattening Flattening: III Other findings: Other findings: poor R wave progression Previous ECG: Previous ECG: Unavailable Interpretation: Interpretation: non-specific Recommended Follow-up: Recommended follow up: further workup in the ED us Austen Lewis MD ECG ORDERABLES Final R esult Performing Organization Address [facility] Co de Phone Number [facility] * CT Stroke Head WO Contrast (02/19/2025 12:44 PM CDT) Anatomical Region Laterality Modality Head N/A Computed Tomogra phy 02/19/2025 1:02 PM CDT Impressions 02/19/2025 4:50 PM CDT No acute intracranial abnormality. The Critical results were discussed with Dr. Snow by Dr. Wayne on 02/19/2025 at 12:43 PM. Dictated by: Frank Wayne M.D. The radiology attending physician has personally reviewed this study, and had reviewed and/or edited this written report and agrees with it. Electronically signed by: Alfredo Mcghee MD Narrative 02/19/2025 4:50 PM CDT EXAMINATION: CT head without contrast HISTORY: Right sided vision change, headache TECHNIQUE: CT of the head was performed with images acquired from skull base to vertex without intravenous contrast. COMPARISON: None Available. FINDINGS: No acute intracranial hemorrhage. No mass effect or midline shift. The higgins-white differentiation is normal. Scattered white matter hypoattenuation is nonspecific but most commonly due to chronic small vessel ischemia. Diffuse cerebral volume loss with proportional ex vacuo ventricular dilatation. No acute calvarial fracture. Mild paranasal sinus disease. Mastoid air cells are clear. The orbits are normal. Procedure Note Alfredo Mcghee MD - 02/19/2025 EXAMINATION: CT head without contrast HISTORY: Right sided vision change, headache TECHNIQUE: CT of the head was performed with images acquired from skull base to vertex without intravenous contrast. COMPARISON: None Available. FINDINGS: No acute intracranial hemorrhage. No mass effect or midline shift. The higgins-white differentiation is normal. Scattered white matter hypoattenuation is nonspecific but most commonly due to chronic small vessel ischemia. Diffuse cerebral volume loss with proportional ex vacuo ventricular dilatation. No acute calvarial fracture. Mild paranasal sinus disease. Mastoid air cells are clear. The orbits are normal. IMPRESSION: No acute intracranial abnormality. The Critical results were discussed with Dr. Snow by Dr. Wayne on 02/19/2025 at 12:43 PM. Dictated by: Frank Wayne M.D. The radiology attending physician has personally reviewed this study, and had reviewed and/or edited this written report and agrees with it. Electronically signed by: Alfredo Mcghee MD Austen Lewis MD IMG CT PROCEDURES Final Result * POCT glucose (02/19/2025 12:44 PM CDT) [facility] Glucose, POC 110 70 - 199 mg/dL Blood 02/19/2025 12:4 4 PM CDT 02/19/2025 12:44 PM CDT Notinfile Unknown LAB POCT ORDERABLES - DEVICE F inal Result Performing Organization Address [facility] Co de Phone Number [facility] [place] [address] * POCT prothrombin time, whole blood (02/19/2025 12:42 PM CDT) [facility] PT, POC 11.4 10.6 - 13.5 sec INR, bld, POC 0.9 0.9 - 1.2 [facility] Blood 02/19/2025 12:4 2 PM CDT 02/19/2025 12:42 PM CDT Result [facility] Notinfile Unknown LAB POCT ORDERABLES - DEVICE F inal Result Performing Organization Address [facility] Co de Phone Number [facility] [place] [address] * Troponin I high-sensitivity series (baseline, 2hr, 4hr, 6hr) (02/19/2025 12:38 PM CDT) Pathologist [facility] Trop I hs <4 <=35 ng/L Comment: Code Blue Specimen Interpretive Data For further hscTnI resources including the diagnostic algorithm and an aid in interpretation, copy and paste this link: https://bjhlab.testcatalog.org/show/[email or web address] Current Interpretive Data last revised 2020. Blood 02/19/2025 12:3 8 PM CDT 02/19/2025 12:46 PM CDT Austen Lewis MD LAB BLOOD ORDERABLES Fi nal Result Performing Organization Address [facility] Co de Phone Number [facility] Department [place] [address] * eGFR (02/19/2025 12:38 PM CDT) eGFR >90 >=60 mL/min/1. 73 m2 Comment: Interpretive Data Reference Interval Normal >/= 90 mL/min/1.73m2 Mildly decreased* 60 - 89 mL/min/1.73m2 Mildly to moderately decreased 45 - 59 mL/min/1.73m2 Moderately to severely decreased 30 - 44 mL/min/1.73m2 Severely decreased 15 - 29 mL/min/1.73m2 Kidney Failure < 15 mL/min/1.73m2 *Relative to young adult level Estimated glomerular filtration rate is determined by the 2020 CKD-EPI equation recommended by the National Kidney Foundation (A Unifying Approach to GFR Estimation: Recommendations of the NKF-ASK Task Force on Reassessing the Inclusion of Race in Diagnosing Kidney Disease, JASN 2020). The CKD-EPI equation should not be used for patients with unstable renal function and has not been validated in children and those over 70. Current interpretive data was last reviewed 2021. Blood 02/19/2025 12:3 8 PM CDT 02/19/2025 12:46 PM CDT Austen Lewis MD LAB BLOOD ORDERABLES Fi nal Result Performing Organization Address City/[facility]/ZIP Co de Phone Number [facility] Department [place] [address] * Differential, auto (02/19/2025 12:38 PM CDT) Pathologist [facility] Neutrophil abs 3.9 1.5 - 6.5 K/cumm Imm gran abs 0.0 0.0 - 0.1 K/cumm [facility] Lymphocyte abs 1.4 0.8 - 3.3 K/cumm [facility] Monocyte abs 0.7 0.2 - 0.8 K/cumm [facility] Eosinophil abs 0.5 0.0 - 0.5 K/cumm [facility] Basophil abs 0.1 0.0 - 0.1 K/cumm [facility] Neutrophil pct 59.3 % [facility] Comment: Interpretive Data Percent cell count reference ranges are not reported, since discordance with absolute values may lead to misinterpretation of CBC data. Current Interpretive Data was last revised on 2018. Imm gran pct 0.5 % [facility] Comment: Interpretive Data Percent cell count reference ranges are not reported, since discordance with absolute values may lead to misinterpretation of CBC data. Current Interpretive Data was last revised on 2018. Lymphocyte pct 20.9 % [facility] Comment: Interpretive Data Percent cell count reference ranges are not reported, since discordance with absolute values may lead to misinterpretation of CBC data. Current Interpretive Data was last revised on 2018. Monocyte pct 11.2 % [facility] Comment: Interpretive Data Percent cell count reference ranges are not reported, since discordance with absolute values may lead to misinterpretation of CBC data. Current Interpretive Data was last revised on 2018. Eosinophil pct 7.2 % [facility] Comment: Interpretive Data Percent cell count reference ranges are not reported, since discordance with absolute values may lead to misinterpretation of CBC data. Current Interpretive Data was last revised on 2018. Basophil pct 0.9 % [facility] Comment: Interpretive Data Percent cell count reference ranges are not reported, since discordance with absolute values may lead to misinterpretation of CBC data. Current Interpretive Data was last revised on 2018. Blood 02/19/2025 12:3 8 PM CDT 02/19/2025 12:46 PM CDT us Austen Lewis MD LAB BLOOD ORDERABLES Fi nal Result [facility] Department [place] [address] * (ABNORMAL) CBC with auto differential (02/19/2025 12:38 PM CDT) Pathologist [facility] WBC 6.5 3.8 - 9.9 K/cumm Comment:Fiona Richardson Specimen Hgb 15.8 13.0 - 17.5 g/dL [facility] Hct 44.0 38.9 - 50.3 % [facility] Plt 221 150 - 400 K/cumm [facility] MPV 8.9(L) 9.1 - 12.3 fL [facility] RBC 4.93 4.30 - 5.80 M/cumm [facility] MCV 89.2 81.3 - 96.4 fL [facility] MCH 32.0 27.1 - 33.3 pg [facility] MCHC 35.9(H) 32.3 - 35.7 g/dL [facility] RDW CV 11.9 11.1 - 14.9 % [facility] RDW SD 38.3 35.7 - 48.1 fL [facility] NRBC abs 0.00 0.00 - 0.01 K/cumm [facility] Blood Venous blood specimen / Unknown 02/19/2025 12:38 PM CDT 02/19/2025 12:46 PM CDT Narrative [facility] - 02/19/2025 12:53 PM CDT Potential Stroke Patient us Austen Lewis MD LAB BLOOD ORDERABLES Fi nal Result [facility] Department [place] [address] * aPTT (02/19/2025 12:38 PM CDT) Pathologist [facility] aPTT 29 28 - 38 sec Comment: Fiona Blue Specimen Interpretive Data Heparin therapeutic range: 66.0 - 100.0 seconds. Range based on correlation with therapeutic heparin activity range of 0.3 - 0.7 Units/mL. Current interpretive data was last revised on 2023. Blood Venous blood specimen / Unknown 02/19/2025 12:38 PM CDT 02/19/2025 12:46 PM CDT Narrative [facility] - 02/19/2025 1:02 PM CDT Potential stroke patient. Austen Lewis MD LAB BLOOD ORDERABLES Fi nal Result Performing Organization Address [facility] [place] [address] * (ABNORMAL) Hemoglobin A1c (02/19/2025 12:38 PM CDT) Hgb A1C 5.9(H) 4.0 - 5.6 % Estimated Average Glucose 123 mg/dL [facility] Comment: The ADA recommends reporting an estimated Average Glucose (eAG) with all Hemoglobin A1c results using the equation derived from a study of 507 normal and diabetic adults. Minority populations were underrepresented and children were not included. (Diabetes Care 2020; 43(S1): S66-S76). The eAG is not equivalent to a fasting glucose. Blood 02/19/2025 12:3 8 PM CDT 02/19/2025 12:50 PM CDT us Scooter Krishnamurthy MD LAB BLOOD ORDERABLES Final Result Performing Organization Address [facility] [place] [address] * (ABNORMAL) Lipid panel (02/19/2025 12:38 PM CDT) Cholesterol 165 30 - 199 mg/dL Comment: Interpretive Data Ages < or = 19 years Acceptable: <170 mg/dL Borderline high: 170-199 mg/dL High: >or= 200 mg/dL Ages > or = 20 years Desirable: <200 mg/dL Borderline high: 200-239 mg/dL High: >or= 240 mg/dL Literature References: 1. Expert Panel on Integrated Guidelines for Cardiovascular Health and Risk Reduction in Children and Adolescents. Pediatrics 2011;128:S213 2. NCEP Expert Panel. Circulation 2004;110:227 Current Interpretive Data was last revised on 2018. Triglycerides 202(H) <=149 mg/dL [facility] Comment: Interpretive Data Ages < or = 9 years Acceptable: <75 mg/dL Borderline high: 75-99 mg/dL High: >or= 100 mg/dL Ages 10 to 20 years Acceptable: <90 mg/dL Borderline high: 90-129 mg/dL High: >or= 130 mg/dL Ages > or = 20 years Desirable: <150 mg/dL Borderline high: 150-199 mg/dL High: 200-499 mg/dL Very high: >or= 499 mg/dL Literature References: 1. Expert Panel on Integrated Guidelines for Cardiovascular Health and Risk Reduction in Children and Adolescents. Pediatrics 2011;128:S213 2. NCEP Expert Panel. Circulation 2004;110:227 Current Interpretive Data was last revised on 2018. HDL 42 >=40 mg/dL [facility] Comment: Interpretive Data Ages < or = 19 years Acceptable: >45 mg/dL Borderline low: 40-45 mg/dL Low: <40 mg/dL Ages > or = 20 years Desirable: >or= 60 mg/dL Low: <40 mg/dL Literature References: 1. Expert Panel on Integrated Guidelines for Cardiovascular Health and Risk Reduction in Children and Adolescents. Pediatrics 2011;128:S213 2. NCEP Expert Panel. Circulation 2004;110:227 Current Interpretive Data was last revised on 2018. LDL, calculated 89 <=129 mg/dL [facility] Comment: Interpretive Data Ages < or = 19 years Acceptable: <110 mg/dL Borderline high: 110-129 mg/dL High: >or= 130 mg/dL Ages > or = 20 years Optimal: <100 mg/dL Near optimal: 100-129 mg/dL Borderline high: 130-159 mg/dL High: >160 mg/dL Calculated using the Hai LDL-C estimating equation. This equation was implemented on 2024. Prior to this date LDL-C was estimated using the Friedewald equation. Literature References: 1. Expert Panel on Integrated Guidelines for Cardiovascular Health and Risk Reduction in Children and Adolescents. Pediatrics 2011;128:S213 2. NCEP Expert Panel. Circulation 2004;110:227 3. Hai Starks et al. RONAN Cardiol. 2019March 26;5(5):540-548. doi: [email or web address] Current Interpretive Data was last revised on 2024. Non-HDL Cholesterol 123 mg/dL [facility] Comment: Interpretive Data Ages < or = 19 years Acceptable: <120 mg/dL Borderline high: 120-144 mg/dL High: >145 mg/dL Ages > or = 20 years When triglycerides are >200 mg/dL, Non-HDL cholesterol is a secondary target of therapy with treatment goals that are 30 mg/dL greater than the LDL cholesterol target. Literature References: 1. Expert Panel on Integrated Guidelines for Cardiovascular Health and Risk Reduction in Children and Adolescents. Pediatrics 2011;128:S213 2. NCEP Expert Panel. Circulation 2004;110:227 Current Interpretive Data was last revised on 2018. Chol/HDL ratio 4 [facility] Blood 02/19/2025 12:3 8 PM CDT 02/19/2025 12:46 PM CDT us Scooter Krishnamurthy MD LAB BLOOD ORDERABLES Final Result [facility] Department [place] [address] * Comprehensive metabolic panel (02/19/2025 12:38 PM CDT) Sodium 135 135 - 145 mmol/L Comment:Code Blue Specimen Potassium, pl 4.4 3.3 - 4.9 mmol/L [facility] Comment:Code Blue Specimen Chloride 98 97 - 110 mmol/L [facility] Comment:Code Blue Specimen CO2 25 22 - 32 mmol/L [facility] Comment:Code Blue Specimen Anion gap 12 2 - 15 mmol/L [facility] Comment:Code Blue Specimen BUN 11 6 - 25 mg/dL [facility] Comment:Code Blue Specimen Creatinine 0.89 0.80 - 1.30 mg/dL [facility] Comment:Code Blue Specimen Glucose 113 70 - 199 mg/dL [facility] Comment: Code Blue Specimen Interpretive Data Fasting glucose >/= 126 mg/dl is diagnostic for diabetes. Fasting is defined as no caloric intake for at least 8 hours. Fasting glucose between 100 mg/dl to 125 mg/dl is diagnostic of prediabetes. In a patient with classic symptoms of hyperglycemia or hyperglycemic crisis, a random glucose >/= 200 mg/dl is diagnostic for diabetes. In the absence of unequivocal hyperglycemia, results should be confirmed by repeat testing. The classification and Diagnosis of Diabetes Diabetes Care 2021; 46: S19-S40. Current interpretive data was last revised 2022. Calcium 9.6 8.5 - 10.3 mg/dL [facility] Comment:Code Blue Specimen Bilirubin, total 0.5 0.1 - 1.2 mg/dL [facility] Comment:Code Blue Specimen Protein, pl 7.8 6.5 - 8.5 g/dL [facility] Comment:Code Blue Specimen Albumin 4.5 3.5 - 5.0 g/dL [facility] Comment:Code Blue Specimen Alk phos 77 40 - 130 Units/L [facility] Comment:Code Blue Specimen ALT 37 7 - 55 Units/L [facility] Comment:Code Blue Specimen AST 34 10 - 50 Units/L [facility] Comment:Code Blue Specimen Blood Venous blood specimen / Unknown 02/19/2025 12:38 PM CDT 02/19/2025 12:46 PM CDT Narrative [facility] - 02/19/2025 1:13 PM CDT Potential Stroke Patient us Austen Lewis MD LAB BLOOD ORDERABLES Fi nal Result [facility] Department [place] [address] from Last 3 Months Insurance [facility] ACCESS CHOICE [place] Advance Directives For more information, please contact: [phone] * Full Code (Latest Code Status on File) Date Activated Date Inactivated Comments 02/19/2025 9:18 PM 02/20/2025 5:01 PM Care Teams Theoretical Physicist Relationship Specialty Start Date End Date Jamey Balderas MD [address] [place] [address] [facility] - General 05/31/22
--- OUTSIDE RECORDS SUMMARY | 2025-04-23 10:11 | XMS_ITS | Clinical Summary ---
Author Organization [facility] Address [address] [place] [address] Care Team Providers Care Wool Handler Name Role Phone Unknown, Provider Primary Care Provider Unavaila ble Source Comments [facility],non-[facility] Affiliates and Associated Physician Practices is amultiple site organization consisting of ambulatory clinics and hospital sitesin [place], [place], [place] and [place]. This disclosure is being madepursuant to the Care Everywhere program and may not contain all information available regarding this patient. Last updated 18.[facility] Active Problems Problem Noted Date Diagnosed Date Fatty liver 03/12/2025 Encounters Date Type Department Care Team Description 03/12/2025 10:30 AM CDT Procedure visit [facility] [address] [place] [id number] Unknown, Provider NAFLD (nonalcoholic fatty liver disease) 03/12/2025 Orders Only [facility] [address] [place] [address] Caitlin Abel MD Fatty liver 03/06/2025 Travel from Last 3 Months Social History Tobacco Use Types Packs/Day Years Used Date Smoking Tobacco: Never Assessed Sex and Gender Information Value Date Recorded Sex Assigned at Not on file Legal Sex Male 8:17 AM CDT Gender Identity Not on file Sexual Orientation Not on file Plan of Treatment Health Maintenance Due Date Last Done Comments COLOGUARD (AGES 45-75) - COLON CA SCREENING 1960 COLON MONITORING 1960 COLONOSCOPY - COLON CA SCREENING 1960 CT COLONOGRAPHY - COLON CA SCREENING 1960 Colorectal Cancer Screening 1960 FIT - COLON CA SCREENING 1960 FLEX SIG - COLON CA SCREENING 1960 LIPID TESTING 1960 HIV SCREENING 1975 HEPATITIS C SCREENING 09/21/1978 DTAP/TDAP/TD VACCINES (1 - Tdap) 1979 PNEUMOCOCCAL VACCINE 50+ (1 of 1 - PCV) 2010 ZOSTER VACCINE (1 of 2) 2010 COVID-19 VACCINE (2 - season) 2024 07/13/2021 DEPRESSION SCREENING 11/26/2024 INFLUENZA VACCINE (Season Ended) 2025 09/22/2019, 09/09/2018, 09/18/2017, Additional history exists Respiratory Syncytial Virus (RSV) Vaccine Pt: or over 60 yrs (1 - 1-dose 75+ series) 2035 HEPATITIS B VACCINE Aged Out No longe r eligible based on patient's age to complete this topic HIB VACCINE Aged Out No longer eligi ble based on patient's age to complete this topic HPV VACCINE Aged Out No longer eligi ble based on patient's age to complete this topic MENINGOCOCCAL (Group B) VACCINE SHARED DECISION-MAKING Aged Out No longer eligible based on patient's age to complete this topic MENINGOCOCCAL GROUPS A/C/Y/W VACCINE Aged Out No longer eligible based on patient's age to complete this topic Procedures Procedure Name Priority Date/Time Associated Diagnosis Comments [place] LIVER ELASTOGRAPHY Routine 03/12/2025 10:34 AM CDT Fatty liver from Last 3 Months Results * [place] LIVER ELASTOGRAPHY (03/12/2025 10:34 AM CDT) Narrative Walt Gerardo MD - 03/12/2025 10:34 AM CDT Walt Gerardo MD 03/19/2025 10:21 PM Diagnosis: Fatty liver RN verified patient is NPO for prior 3 hours. Procedure explained. Date of Exam: 03/12/2025 Liver Stiffness: (LSM, kPa) median: 7.0 IQR/Median% (ideally < 30%): 20% CAP (controlled attenuation parameter): 301 Technical Difficulty: None Ordering Provider: Caitlin Abel MD Fibroscan interpretation: I have personally reviewed the Fibroscan report and associated tracings. The calculated Liver Stiffness Measurement (LSM, kPa) indicates that: The probability of advanced liver fibrosis is: low to moderate. The loss of ultrasound signal, (controlled attenuation parameter, CAP [dB/m]), indicates that the probability of hepatic steatosis is: high. Walt Stover MD The following criteria are used to indicate the probability of advanced (stage 3-4) fibrosis: < 7.0 kPa: low 7.0-8.9 kPa: low to moderate 9.0-14.9 kPa: moderate 15-20 kPa: high > 20 kPa: very high Liver stiffness > 12 kPa is associated with an increased risk of cirrhosis-related complications over the next 3-5 years (Jameier, 2022). Liver stiffness > 20 kPa is also associated with a high probability of complications of portal hypertension including varices and ascites. Liver stiffness > 50 kPa is associated with a high risk of variceal bleeding. These interpretations are based on the following published data: Moses J, Lanr m H, Eknoet M, Kwadwo C, Bonakamii M, Cure S, Ampuero J, Nasr P, Tallab L, Canivet CM, Kecharicks S, S nccandyz Y, Dinkatie E, Tony A, Ysabel M, Cali J, Mally A and Cramer-Pettit M. Non-invasive tests accurately stratify patients with NAFLD based on their risk of liver-related events. J Hepatol (2021) 76: 7298-0838. Praveen MIRANDA, Yvette M, Roxann M, et al. Accuracy of FibroScan controlled attenuation parameter and liver stiffness measurement in assessing steatosis and fibrosis in patients with nonalcoholic fatty liver disease. Gastroenterology 2019;156:7897-5488. Primo MS, Everette R, Van Natrenetta ML, et al. Vibration-controlled transient elastography to assess fibrosis and steatosis in patients with nonalcoholic fatty liver disease. Clin Gastroenterol Hepatol 2019;17:156-163. Note that scores have been developed that incorporate the Fibroscan liver stiffness measurement from large cohorts of patients with liver biopsies to further refine the ability of Fibroscan to identify patients with MASH and advanced fibrosis. These include the FAST (Fibroscan-AST) score (Quinten, 2021) and the Agile3+ and Agile4 scores (Anand, 2022; Mignon, 2023). Quinten TA, Dharmesh Dumas ML, Paula M, Alonzo A, et al. Validation of the accuracy of the FAST score for detecting patients with at-risk nonalcoholic steatohepatitis (CARMONA) in a [place] cohort and comparison to other non-invasive algorithms. PLoS ONE (2021) 17: [id number]. Anand DEVINE, Sal J, Justin ZM, et al. Enhanced diagnosis of advanced fibrosis and cirrhosis in individuals with NAFLD using FibroScan-based Agile scores. J Hepatol (2022) 78: 247-259. Mignon et al. Vibration-controlled transient elastography scores to predict liver-related events in steatotic liver disease. RONAN (2023) 331: 5149-7085 Fibroscan LSM can also be used with laboratory parameters without formulas to assess prognosis. According to the Baveno-VII criteria (Way, 2021), Fibroscan LSM <=15 kPa plus a platelet count of >=[id number]/L rules out clinically significant portal hypertension (sensitivity and negative predictive value >90%) in patients with compensated advanced chronic liver disease. Way R, Evonne J, Ze-Edin G, Manju T, Josh C on behalf of the Baveno VII Faculty. Baveno VII--Renewing consensus in portal hypertension. J Hepatol (2021) 76: 959-974 Assessing the likelihood of advanced fibrosis in patients with intermediate liver stiffness measurement (LSM) by Fibroscan (e.g., 8-15 kPa) can be improved by also calculating the FIB-4 score (Rosalino et al. Hepatology Communications 2019;3:3433-9066) or NAFLD Fibrosis score (Khan et al. Clinical Gastroenterology and Hepatology 2019;17:4419-1997 using routine clinical data. Notes: 1. Fibroscan cannot reliably identify earlier stages of fibrosis (ie distinguish F0 from F1 and F2) and thus a histologic stage cannot be predicted from the Fibroscan reading. 2. Liver stiffness can be increased by factors other than fibrosis including passive congestion, infiltrative processes, active alcoholism, recent moderate alcohol consumption in the 2 weeks before the exam, biliary obstruction and marked inflammation. The interpretation of the Fibroscan result provided above may not have taken such clinical factors into account. 3. Identifying steatosis by an elevated CAP score (> 250 db/m) is useful for establishing a diagnosis of steatotic liver disease. However the severity of steatosis does not correlate with liver related outcomes. Disease etiology also influences Fibroscan cutoff values for fibrosis stages and the following cutoffs have been proposed (Liset et al, Clin Gastro Hepatol 2015; 13:27-36): Cutoffs for Stage 3 and Stage 4 fibrosis respectively: Hepatitis B: >9 and >11.7 kPa Hepatitis C: >9.5 and >12.5 kPa HCV-HIV: >11 and >14 kPa Cholestatic liver diseases: >10 and >17.9 kPa MASLD/MASH: >10 and >14 kPa CAP estimates of steatosis: normal <200 dB/m mild 200 to 250 dB/m moderate 250-290 dB/m substantial > 290 dB/m (Note that Fibroscan is not a quantitative measure of liver fat.) These criteria are estimates and may change as additional supporting data becomes available. (This additional interpretive data was last updated 11/28/24.) [email or web address] Caitlin Abel MD PROCEDURE/MINOR SURGICAL ORDERAB LES Final Result from Last 3 Months Insurance ANTHEM Care Teams Wool Handler Relationship Specialty Start Date End Date Unknown, Provider PCP - General 03/12/25
--- OUTSIDE RECORDS SUMMARY | 2025-04-23 10:11 | XMS_ITS | Clinical Summary ---
Author Organization [facility] Address [address] [facility] [address] [place] [address] Phone Care Team Providers Care Wax Ball Knock Out Worker Name Role Phone French Woodruff DPM Unavailable [phone] Provider, None Primary Care Provider Unavailabl e Allergies No known active allergies Medications atorvastatin (LIPITOR) 20 MG Tablet Take 1 Tab by mouth daily. 90 Tab 1 04/25/2017 Active fenofibrate micronized (LOFIBRA) 200 MG Capsule Take 1 Cap by mouth daily. 90 Cap 3 04/25/2017 Active aspirin 81 MG Chewable Tablet Take 81 mg by mouth daily. Active Multiple Vitamins-Minera ls (MULTIVITAMIN PO) Take by mouth. Active clotrimazole-be tamethasone (LOTRISONE) 1-0.05 % CreamIndication s:Tinea pedis of both feet,Dermatitis of foot,Other eczema TOPICAL, apply to affected area twice daily 45 g 2 11/05/2017 Active aluminum chloride (DRYSOL) 20 % SolutionIndicat ions:Hyperhidro sis of soles Apply nightly. Use as directed. 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 Dyslipidemia 09/12/2015 Immunizations Immunization Administration Dates Next Due Influenza Vaccine greater than 3 yrs 09/18/2017, 08/26/2014 Pneumococcal Vaccine Adult - 23 Valent 8 Tetanus Toxoid, Unspecified Formulation 04/26/20 07 Family History Medical History Relation Name Comments Coronary Artery Disease Father Cancer Mother breast Coronary Artery Disease Mother Relation Name Status Comments Father Mother Social History Tobacco Use Types Packs/Day Years Used Date Smoking Tobacco: Never Smokeless Tobacco: Never Tobacco Cessation:Counseling Given: Yes Alcohol Use Standard Drinks/Week Comments Yes 21 (1 standard drink = 0.6 oz pu re alcohol) Sex and Gender Information Value Date Recorded Sex Assigned at Not on file Legal Sex Male 9:38 PM CDT Gender Identity Not on file Sexual Orientation Not on file Last Filed Vital Signs Vital Sign Reading Time Taken Comments Blood Pressure 125/70 11/21/2017 7:00 AM DIRECTOR TELEMETRY Pulse 76 11/21/2017 7:00 AM DIRECTOR TELEMETRY Temperature 36.4 C (97.6 F) 11/21/2017 7:00 AM DIRECTOR TELEMETRY Respiratory Rate 18 11/21/2017 7:00 AM DIRECTOR TELEMETRY Oxygen Saturation 95% 11/21/2017 7:00 AM DIRECTOR TELEMETRY Inhaled Oxygen Concentration - - Weight 81.6 kg (180 lb) 11/05/2017 9:00 AM DIRECTOR TELEMETRY Height 180.3 cm (5' 11) 11/05/2017 9:00 AM DIRECTOR TELEMETRY Body Mass Index 25.1 11/05/2017 9:00 AM DIRECTOR TELEMETRY Plan of Treatment Health Maintenance Due Date Last Done Comments Hepatitis C Virus (HCV) Screening 1960 TdaP Immunization 1960 Cologuard 2010 Immunochemical Fecal Occult Blood 2010 Pneumococcal Immunization (5 0+ years) (2 of 2 - PCV) 2010 04/26/2008 Zoster Immunization (1 of 2) 2010 Colonoscopy 08/23/2021 08/23/2011 Colorectal Cancer Screening 08/23/2021 Influenza Immunization (#1) 2024 1002/2017, 08/26/2014 SARS-COV-2 Immunization (1 - 2023-25 season) 2024 Respiratory Syncytial Virus (RSV) Immunization (Adult) (1 - 1-dose 75+ series) 2035 08/23/2011 Pneumococcal Immunization Combined Discontinued 04/26/2008 Hepatitis B Immunization Aged Out No longer eligible based on patient's age to complete this topic Meningococcal Immunization (ACWY) Aged Out No longer eligible based on patient's age to complete this topic Rotavirus Immunization Aged Out No lo nger eligible based on patient's age to complete this topic Procedures Procedure Name Priority Date/Time Associated Diagnosis Comments HM COLONOSCOPY Routine 08/23/2011 from Last 3 Months or Most Recently Relevant to Health Maintenance Results * COLONOSCOPY (08/23/2011) Ulysses Feldman DO PROCEDURE/MINOR SURGICAL ORDERA BLES Edited Result - Final from Last 3 Months or Most Recently Relevant to Health Maintenance Care Teams Wax Ball Knock Out Worker Relationship Specialty Start Date End Date Provider, None [place] PCP - General 05/11/21 French Woodruff DPM Podiatry 11/23/16
--- OUTSIDE RECORDS SUMMARY | 2025-04-23 10:11 | XMS_ITS | Clinical Summary ---
Author Organization [facility] Address [address] [place] [address] Care Team Providers Care Arresting Gear Operator Name Role Phone Paige Balderas MD Primary Care Provider Allergies No known active allergies Medications fenofibrate micronized (LOFIBRA) 200 mg Capsule 09/03/2020 Active aspirin (ECOTRIN EC) 81 mg Tablet, Delayed Release (E.C.) every 24 hours. Active multivitamin (Multiple Vitamins) tablet Take by mouth. Active Cholecalciferol, Vitamin D3, 50 mcg (2,000 unit) Capsule Take by mouth. Active zinc sulfate 110 mg (25 mg zinc) Tablet Take by mouth. Active atorvastatin (LIPITOR) 20 mg tablet 12/20/2020 Active vitamin E 400 unit capsule Take 400 Units by mouth daily. Active losartan (COZAAR) 50 mg tablet every 24 hours. 05/17/2022 Active Active Problems Problem Noted Date Diagnosed Date Hereditary hemochromatosis 11/10/2020 Leukopenia 09/09/2020 Encounters Date Type Department Care Team Description 03/12/2025 Abstract [facility] Oncology and Hematology - [place] [address] [place] [address] Jeremiah Shaw MD 02/03/2025 Orders Only [facility] Oncology and [facility]ematology - [place] [address] [place] [address] Jeremiah Shaw MD Hereditary hemochromatosis (Primary Dx) from Last 3 Months Family History Medical History Relation Name Comments Diabetes Brother 1 Healthy Brother 2 Healthy Daughter Heart Disease Father Stroke Father Cancer Mother Healthy Son Relation Name Status Comments Brother 1 Alive Brother 2 Alive Daughter Alive Father bypass Xr. Mother Alive Son Alive Social History Tobacco Use Types Packs/Day Years Used Date Smoking Tobacco: Never Smokeless Tobacco: Never Tobacco Cessation:Counseling Given: Not Answered Alcohol Use Standard Drinks/Week Comments Yes 1 (1 standard drink = 0.6 oz pur e alcohol) beer daily. Sex and Gender Information Value Date Recorded Sex Assigned at Not on file Legal Sex Male 5:26 AM SANITATION LEAD Gender Identity Not on file Sexual Orientation Not on file Last Filed Vital Signs Vital Sign Reading Time Taken Comments Blood Pressure 155/90 10/20/2024 10:10 AM SANITATION LEAD Pulse 75 10/20/2024 10:10 AM SANITATION LEAD Temperature 36.7 C (98 F) 10/20/2024 10:10 AM SANITATION LEAD Respiratory Rate 16 10/20/2024 10:10 AM SANITATION LEAD Oxygen Saturation 96% 10/20/2024 10:10 AM SANITATION LEAD Inhaled Oxygen Concentration - - Weight 86.2 kg (190 lb) 10/20/2024 10:10 AM SANITATION LEAD Height 180.3 cm (5' 11) 08/29/2022 12:05 PM CDT Body Mass Index 26.5 08/29/2022 12:05 PM CDT Plan of Treatment Upcoming Encounters Date Type Department Care Team (Late st Contact Info) Description 04/30/2025 3:30 PM CDT Office Visit [facility] Oncology and Hematology [facility] [address] [place] [address] [facility] [address] [place] [address] Jeremiah Shaw MD [address] [facility] [address] [place] [address] Health Maintenance Due Date Last Done Comments Pre-Diabetes and Diabetes Screening 1960 FIT-DNA Q 3 years 2005 FIT/FOBT Q 1 year 2005 Flex Sig/CT Colonography Q 5 years 2005 ZOSTER VACCINE (1 of 2) 2010 COLORECTAL SCREENING 08/23/2021 08/23/2011 Colorectal Cancer Screening 08/23/2021 INFLUENZA VACCINE (#1) 2024 9, 09/09/2018, 09/18/2017, Additional history exists Preventative Visit- Commercial 11/26/2024 DTAP/TDAP/TD VACCINES (2 - T d or Tdap) 01/15/2028 01/15/2018 RSV VACCINE (60+ or ) (1 - 1-dose 75+ series) 2035 Insurance [facility] BLUE PREFERRED Care Teams Arresting Gear Operator Relationship Specialty Start Date End Date Paige Balderas MD PCP - General Internal Medicine 08/27/20
--- OUTSIDE RECORDS SUMMARY | 2025-04-23 10:11 | XMS_ITS | Referral Summary ---
Author Organization [facility] Address [address] [place] [phone] Care Team Providers Care Marine Pipe Welder Name Role Phone Jamey Balderas MD Primary Care Provide r Encounters Date Type Department Care Team Description 03/16/2025 9:13 AM CDT - 03/16/2025 11:59 PM CDT Hospital Encounter [facility] ` [address] [place] [id number] Fatty (change of) liver, not elsewhere classified Discharge Disposition: Discharge to home or self care 02/19/2025 2:03 PM CDT - 02/20/2025 12:56 PM CDT Hospital Encounter [address] [phone] Austen Lewis MD Holder, Derek Lance, MD Vision changes (Primary Dx); Stenosis of cerebral artery Discharge Disposition: Discharge to home or self care 02/19/2025 Ophth Exam [facility] Ophthalmology [address] [place] [phone] French Saenz MD from Last 3 Months Allergies No known active allergies Medications aspirin [...] Noted Date Diagnosed Date Vision changes 02/19/2025 Social History Tobacco Use Types Packs/Day Years [...] on file 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 Electronically signed by: Shikha Palacios M.D. 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 4. Mild TR and MO. Unable to assess PA pressure, likely normal. 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 4. Mild TR and MO. Unable to assess PA pressure, likely normal. [...] [ 2.5 - 4.2 ] MV Decel [id number] msec [ 104.00 - 258.00 ] TAPSE [...] Josesito Guerra MD 02/20/2025 10:51:11 AM CDT Scooter Krishnamurthy MD CV ECHO PROCEDURES Final R esult * (ABNORMAL) Urinalysis reflex to microscopic and culture Urine (02/19/2025 9:59 PM CDT) Color, ur Straw Yellow Clarity, ur Clear Clear [facility] Specific gravity, ur 1.037(H) 1.003 - 1.030 [facility] pH, urine 6.5 [facility] Comment: Interpretive Data U rine pH is affected by diet, medications, systemic acid-base disturbances, and renal tubular function. pH may affect urinary stone formation. For example, urine pH below 6.0 may help reduce the tendency for calcium phosphate stones and pH greater than 6.0 may reduce the tendency for uric acid stone formation. Source: [facility] [employer] Current Interpretive Data was last revised on 2017 Protein, ur ql Negative Negative [facility] Glucose, ur ql Negative Negative [facility] Ketones, ur Negative Negative [facility] Bilirubin, ur Negative Negative [facility] Blood, ur Negative Negative [facility] Urobilinogen, ur <2.0 <2.0 mg/dL [facility] Nitrite, ur Negative Negative [facility] Leukocyte esterase, ur Negative Negative [facility] UA reflex comment Reflex conditions for microscopic UA and culture not met. [facility] Urine 02/19/2025 9:59 PM CDT 02/19/2025 10:39 PM CDT Scooter Krishnamurthy MD LAB MICROBIOLOGY - GENERAL ORDERABLES Final Result [facility] Department [place] [address] * Drugs of Abuse Screen, Urine without Confirmation (02/19/2025 9:59 PM CDT) Amphetamine, ur Not Detected CutOff 500ng/mL Comment: Interpretive Data - Amphetamines: Samples containing greater than 500 ng/mL d-methamphetamine or other cross-reacting amphetamine compounds are reported as positive. Amphetamine immunoassays are subject to significant false positive rates due to cross-reactivity of non-amphetamine drugs. Confirmatory testing required for definitive results. Current Interpretive Data was last reviewed 2023. Barbiturates, ur Not Detected CutOff 200ng/mL [facility] Comment: Interpretive Data - Barbiturates: Samples containing greater than 200 ng/mL secobarbital or other cross-reacting barbiturate compounds are reported as positive. False positive and false negative results are possible. Confirmatory testing required for definitive results. Current Interpretive Data was last reviewed 2023. Benzodiazepines, ur Not Detected CutOff 100ng/mL [facility] Comment: Interpretive Data - Benzodiazepines: Samples containing greater than 100 ng/mL nordiazepam or other cross-reacting compounds are reported as positive. False positive and false negative results are possible. Confirmatory testing required for definitive results. Current Interpretive Data was last reviewed 2023. Cannabinoids, ur Not Detected CutOff 50 ng/mL [facility] Comment: Interpretive Data - Cannabinoids: Samples containing greater than 50 ng/mL delta-9 THC -COOH or other cross- reacting compounds are reported as positive. False positive and false negative results are possible. Confirmatory testing required for definitive results. Current Interpretive Data was last reviewed 2023. Cocaine, ur Not Detected CutOff 150ng/mL [facility] Comment: Interpretive Data - Cocaine: Samples containing greater than 150 ng/mL benzoylecgonine or other cross- reacting compounds are reported as positive. False positive and false negative results are possible. Confirmatory testing required for definitive results. Current Interpretive Data was last reviewed 2023. Fentanyl, Ur Not Detected CutOff 5 ng/mL [facility] Comment: Interpretive Data - Fentanyl: Samples containing greater than 5 ng/mL norfentanyl, fentanyl, or other cross-reacting fentanyl compounds are reported as positive. False positive and false negative results are possible. Confirmatory testing required for definitive results. Current Interpretive Data was last reviewed 2024. Methadone, ur Not Detected CutOff 300ng/mL [facility] Comment: Interpretive Data - Methadone: Samples containing greater than 300 ng/mL d,l-methadone or other cross-reacting compounds are reported as positive. False positive and false negative results are possible. Confirmatory testing required for definitive results. Current Interpretive Data was last reviewed 2023. Opiates, ur Not Detected CutOff 300ng/mL [facility] Comment: Interpretive Data - Opiates: Samples containing greater than 300 ng/mL morphine or other cross-reacting compounds are reported as positive. False positive and false negative results are possible. Confirmatory testing required for definitive results. Current Interpretive Data was last reviewed 2023. Oxycodone, ur Not Detected CutOff 100ng/mL [facility] Comment: Interpretive Data - Oxycodone: Samples containing greater than 100 ng/mL oxycodone or other cross-reacting compounds are reported as positive. False positive and false negative results are possible. Confirmatory testing required for definitive results. Current Interpretive Data was last reviewed 2023. Phencyclidine, ur Not Detected CutOff 25 ng/mL [facility] Comment: Interpretive Data - Phencyclidine: Samples containing greater than 25 ng/mL phencyclidine or other cross-reacting compounds are reported as positive. False positive and false negative results are possible. Confirmatory testing required for definitive results. Current Interpretive Data was last reviewed 2023. Urine Creatinine 66 mg/dL [facility] Comment: Interpretive Data Urine Creatinine: < 10 mg/dL is extremely dilute = or > 10 but < 20 mg/dL is dilute = or > 20 mg/dL is normal Current Interpretive Data was last revised on 2018. Urine 02/19/2025 9:59 PM CDT 02/19/2025 10:41 PM CDT Narrative [facility] - 02/19/2025 11:13 PM CDT Drug of Abuse screening is performed by immunoassay for medical purposes only. This is not to be used for Pain Management purposes. us Scooter Krishnamurthy MD LAB URINE ORDERABLES Final Result [facility] Department [place] [address] * MRI Brain WO Contrast (02/19/2025 7:22 [...] carotid arteries and basilar artery. Known left VESSEL ENGINEER stenosis better appreciated on CTA. Procedure Note [...] carotid arteries and basilar artery. Known left VESSEL ENGINEER stenosis better appreciated on CTA. IMPRESSION: No acute intracranial abnormality. Dictated by: Frank Wayne M.D. The radiology attending physician has personally reviewed this study, and had reviewed and/or edited this written report and agrees with it. Electronically signed by: Garrick Malcolm MD us Scooter Krishnamurthy MD IMG MRI PROCEDURES Final R esult * CTA Head Neck W WO Contrast (02/19/2025 4:30 PM CDT) Anatomical Region Laterality Modality Head and Neck N/A Computed Tomogra phy 02/19/2025 4:43 PM CDT Impressions 02/19/2025 4:54 PM CDT 1. No acute intracranial hemorrhage or large vascular territory infract. 2. 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 The above findings were communicated to Dr. Mar by Dr. Frank Wayne M.D. on 02/19/2025 4:42 PM. Dictated by: Frank Wayne M.D. The radiology attending physician has personally reviewed this study, and had reviewed and/or edited this written report and agrees with it. Electronically signed by: MD Boyd Stern 02/19/2025 4:54 PM CDT EXAMINATION: 1. Computed [...] segmental multifocal stenosis/thready opacification of distal left VESSEL ENGINEER There is no aneurysm or vascular malformation [...] segmental multifocal stenosis/thready opacification of distal left VESSEL ENGINEER There is no aneurysm or vascular malformation identified. IMPRESSION: 1. No acute intracranial hemorrhage or large vascular territory infract. 2. 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 The above findings were communicated to [...] 2020. Trop I hs delta 0 ng/L KIMMY MILLER Trop I hs interp Insignificant KIMMY Chang Blood 02/19/2025 2:22 PM CDT 02/19/2025 2:32 PM CDT us Josesito Dennison MD LAB BLOOD ORDERABLES Final Result [facility] Department [place] [address] * ECG 12-LEAD (02/19/2025 1:11 PM CDT) Narrative [facility] - 02/19/2025 1:11 PM CDT Josesito Dennison MD 02/19/2025 4:49 PM ECG 12 lead Date/Time: 02/19/2025 1:11 PM Performed by: Toña Thompson MD Authorized by: Josesito Dennison MD Rate: [...] Lewis MD ECG ORDERABLES Final R esult [facility] * CT Stroke Head WO Contrast [...] * POCT glucose (02/19/2025 12:44 PM CDT) Glucose, POC 110 70 - 199 mg/dL Blood 02/19/2025 12:4 4 PM CDT 02/19/2025 12:44 PM CDT us Notinfile Unknown LAB POCT ORDERABLES - DEVICE F inal Result [facility] Department [place] [address] * POCT prothrombin time, whole blood (02/19/2025 12:42 PM CDT) PT, POC 11.4 10.6 - 13.5 sec INR, bld, POC 0.9 0.9 - 1.2 [facility] Blood 02/19/2025 12:4 2 PM CDT 02/19/2025 12:42 PM CDT Notinfile Unknown LAB POCT ORDERABLES - DEVICE F inal Result Performing Organization Address [facility] Co de Phone Number [facility] Department [place] [address] * Troponin I high-sensitivity series (baseline, 2hr, 4hr, 6hr) (02/19/2025 12:38 PM CDT) Trop I hs <4 <=35 ng/L Comment: Code Blue Specimen Interpretive Data For further hscTnI resources including the diagnostic algorithm and an aid in interpretation, copy and paste this link: https://bjhlab.testcatalog.org/show/hsTrop-1 Current Interpretive Data last revised 2020. Blood 02/19/2025 12:3 8 PM CDT 02/19/2025 12:46 PM CDT Austen Lewis MD LAB BLOOD ORDERABLES Fi nal Result Performing Organization Address [facility] Co de Phone Number [facility] Department [place] [address] * eGFR (02/19/2025 12:38 PM CDT) eGFR [...] of Race in Diagnosing Kidney Disease, JASN 202). The CKD-EPI equation should not be used for patients with unstable renal function and has not been validated in children and those over 70. Current interpretive data was last reviewed 2021. Blood 02/19/2025 12:3 8 PM CDT 02/19/2025 12:46 PM CDT us Austen Lewis MD LAB BLOOD ORDERABLES Fi nal Result [facility] Department [place] [address] * Differential, auto (02/19/2025 12:38 PM CDT) Neutrophil abs 3.9 1.5 - 6.5 K/cumm Imm gran abs 0.0 0.0 - 0.1 K/cumm [facility] Lymphocyte abs 1.4 0.8 - 3.3 K/cumm [facility] Monocyte abs 0.7 0.2 - 0.8 K/cumm [facility] Eosinophil abs 0.5 0.0 - 0.5 K/cumm [facility] Basophil abs 0.1 0.0 - 0.1 K/cumm [facility] Neutrophil pct 59.3 % [facility] Comment: Interpretive Data Percent cell count reference ranges are not reported, since discordance with absolute values may lead to misinterpretation of CBC data. Current Interpretive Data was last revised on 2018. Imm gran pct 0.5 % [facility] Comment: Interpretive Data Percent cell count reference ranges are not reported, since discordance with absolute values may lead to misinterpretation of CBC data. Current Interpretive Data was last revised on 2018. Lymphocyte pct 20.9 % [facility] Comment: Interpretive Data Percent cell count reference ranges are not reported, since discordance with absolute values may lead to misinterpretation of CBC data. Current Interpretive Data was last revised on 2018. Monocyte pct 11.2 % [facility] Comment: Interpretive Data Percent cell count reference ranges are not reported, since discordance with absolute values may lead to misinterpretation of CBC data. Current Interpretive Data was last revised on 2018. Eosinophil pct 7.2 % [facility] Comment: Interpretive Data Percent cell count reference ranges are not reported, since discordance with absolute values may lead to misinterpretation of CBC data. Current Interpretive Data was last revised on 2018. Basophil pct 0.9 % [facility] Comment: Interpretive Data Percent cell count reference ranges are not reported, since discordance with absolute values may lead to misinterpretation of CBC data. Current Interpretive Data was last revised on 2018. Blood 02/19/2025 12:3 8 PM CDT 02/19/2025 12:46 PM CDT us Austen Lewis MD LAB BLOOD ORDERABLES Fi nal Result [facility] Department [place] [address] * (ABNORMAL) CBC with auto differential (02/19/2025 12:38 PM CDT) WBC 6.5 3.8 - 9.9 K/cumm Comment:Code Blue Specimen Hgb 15.8 13.0 - 17.5 g/dL [facility] Hct 44.0 38.9 - 50.3 % [facility] Plt 221 150 - 400 K/cumm [facility] MPV 8.9(L) 9.1 - 12.3 fL [facility] RBC 4.93 4.30 - 5.80 M/cumm [facility] MCV 89.2 81.3 - 96.4 fL [facility] MCH 32.0 27.1 - 33.3 pg [facility] MCHC 35.9(H) 32.3 - 35.7 g/dL [facility] RDW CV 11.9 11.1 - 14.9 % [facility] RDW SD 38.3 35.7 - 48.1 fL [facility] NRBC abs 0.00 0.00 - 0.01 K/cumm [facility] Blood Venous blood specimen / Unknown 02/19/2025 12:38 PM CDT 02/19/2025 12:46 PM CDT Narrative [facility] - 02/19/2025 12:53 PM CDT Potential Stroke Patient Austen Lewis MD LAB BLOOD ORDERABLES Fi nal Result Performing Organization Address [facility] de Phone Number [facility] [place] [address] * aPTT (02/19/2025 12:38 PM CDT) Pathologist [facility] aPTT 29 28 - 38 sec Comment: Code Blue Specimen Interpretive Data Heparin therapeutic range: 66.0 - 100.0 seconds. Range based on correlation with therapeutic heparin activity range of 0.3 - 0.7 Units/mL. Current interpretive data was last revised on 2023. Blood Venous blood specimen / Unknown 02/19/2025 12:38 PM CDT 02/19/2025 12:46 PM CDT Narrative [facility] - 02/19/2025 1:02 PM CDT Potential stroke patient. Austen Lewis MD LAB BLOOD ORDERABLES Fi nal Result Performing Organization Address [facility] de Phone Number [facility] [place] [address] * (ABNORMAL) Hemoglobin A1c (02/19/2025 12:38 PM CDT) Pathologist [facility] Hgb A1C 5.9(H) 4.0 - 5.6 % Estimated Average Glucose 123 mg/dL [facility] Comment: The ADA recommends reporting an [...] Krishnamurthy MD LAB BLOOD ORDERABLES Final Result [facility] [place] [address] * (ABNORMAL) Lipid panel (02/19/2025 12:38 PM [...] revised on 2018. Triglycerides 202(H) <=149 mg/dL [facility] Comment: Interpretive Data Ages < or = [...] revised on 2018. HDL 42 >=40 mg/dL [facility] Comment: Interpretive Data Ages < or = [...] on 2018. LDL, calculated 89 <=129 mg/dL [facility] Comment: Interpretive Data Ages < or = [...] 3. Hai Starks et al. RONAN Cardiol. 2020 March 26;5(5):540-548. doi: 10.1001/jamacardio.2020.0013 Current Interpretive Data was last revised on 2024. Non-HDL Cholesterol 123 mg/dL [facility] Comment: Interpretive Data Ages < or = [...] last revised on 2018. Chol/HDL ratio 4 [facility] Blood 02/19/2025 12:3 8 PM CDT 02/19/2025 12:46 PM CDT us Scooter Krishnamurthy MD LAB BLOOD ORDERABLES Final Result [facility] Department [place] [address] * Comprehensive metabolic panel (02/19/2025 12:38 PM CDT) Sodium 135 135 - 145 mmol/L Comment:Code Blue Specimen Potassium, pl 4.4 3.3 - 4.9 mmol/L [facility] Comment:Code Blue Specimen Chloride 98 97 - 110 mmol/L [facility] Comment:Code Blue Specimen CO2 25 22 - 32 mmol/L [facility] Comment:Code Blue Specimen Anion gap 12 2 - 15 mmol/L [facility] Comment:Code Blue Specimen BUN 11 6 - 25 mg/dL [facility] Comment:Code Blue Specimen Creatinine 0.89 0.80 - 1.30 mg/dL [facility] Comment:Code Blue Specimen Glucose 113 70 - 199 mg/dL [facility] Comment: Code Blue Specimen Interpretive Data [...] classification and Diagnosis of Diabetes Diabetes Care 202; 46: S19-S40. Current interpretive data was last revised 2022. Calcium 9.6 8.5 - 10.3 mg/dL [facility] Comment:Code Blue Specimen Bilirubin, total 0.5 0.1 - 1.2 mg/dL [facility] Comment:Code Blue Specimen Protein, pl 7.8 6.5 - 8.5 g/dL [facility] Comment:Code Blue Specimen Albumin 4.5 3.5 - 5.0 g/dL [facility] Comment:Code Blue Specimen Alk phos 77 40 - 130 Units/L [facility] Comment:Code Blue Specimen ALT 37 7 - 55 Units/L [facility] Comment:Code Blue Specimen AST 34 10 - 50 Units/L [facility] Comment:Code Blue Specimen Blood Venous blood specimen / Unknown 02/19/2025 12:38 PM CDT 02/19/2025 12:46 PM CDT Narrative [facility] - 02/19/2025 1:13 PM CDT Potential Stroke Patient us Austen Lewis MD LAB BLOOD ORDERABLES Fi nal Result [facility] [place] [address] from Last 3 Months Insurance [employer] ACCESS CHOICE CHOICE [facility] [place] Advance Directives For more information, please contact: [phone] * Full Code (Latest Code Status on File) Date Activated Date Inactivated Comments 02/19/2025 9:18 PM 02/20/2025 5:01 PM Care Teams Marine Pipe Welder Relationship Specialty Start Date End Date Jamey Balderas MD [address] [address] PCP - General 05/31/22
--- OUTSIDE RECORDS SUMMARY | 2025-04-23 10:11 | XMS_ITS | Data Portability ---
Author Organization [place] [facility], Main Office Address [address] [place] [address] Care Team Providers Care Representative Phlebotomy Services Name Role Phone PAIGE BALDERAS Primary Care Provider PAIGE BALDERAS Referring Provider Assessment Encounter Date Assessment Date Assessment LastModified by Organization Details LastModified Time 01/07/2024 01/07/2024 01/05/2023: TSH: WNL Lipids: WNL CMP: Gluc 111 A1C 5.5 CBC: WNL PSA 0.61 07/05/2023: Gluc 106 A1C 5.6 12/28/2023: TG 178 Gluc 111 Not available 01/07/2024 11:20:59 07/07/2024 07/07/2024 01/05/2023: TSH: WNL Lipids: WNL CMP: Gluc 111 A1C 5.5 CBC: WNL PSA 0.61 07/05/2023: Gluc 106 A1C 5.6 12/28/2023: TG 178 Gluc 111 07/01/2024: TG 129 A1C 5.7 Not available 07/07/2024 12:03:18 01/19/2025 01/19/2025 01/05/2023: TSH: WNL Lipids: WNL CMP: Gluc 111 A1C 5.5 CBC: WNL PSA 0.61 07/05/2023: Gluc 106 A1C 5.6 12/28/2023: TG 178 Gluc 111 07/01/2024: TG 129 A1C 5.7 07/08/2024: PSA 0.67 01/13/2025: A1C 5.9 TG 193 Gluc 108 Not available 01/19/2025 12:58:36 03/09/2025 03/09/2025 01/05/2023: TSH: WNL Lipids: WNL CMP: Gluc 111 A1C 5.5 CBC: WNL PSA 0.61 07/05/2023: Gluc 106 A1C 5.6 12/28/2023: TG 178 Gluc 111 07/01/2024: TG 129 A1C 5.7 07/08/2024: PSA 0.67 01/13/2025: A1C 5.9 TG 193 Gluc 108 Not available 03/09/2025 12:03:23 Plan of Treatment Reminders Order Date Submit Date Provider Last Modified By Organization Details Last Modified Time Details Appointments Follow Up 15 2024 11:00A Tereza khalil MD Not available Not available Not available Any 15 2024 11:00A Tereza khalil MD Not available Not available Not available Lab HbA1c (hemoglob in A1c), blood 2024 025 [employer] [facility], [address], [place], [address], 03/09/2025 12:03:29 microalbu min, urine 2024 025 [employer] [facility], [address], [place], [address], 03/09/2025 12:03:31 PSA, serum or plasma 2024 025 [employer] [facility], [address], [place], [address], 03/09/2025 12:03:31 CMP, serum or plasma 2024 025 [employer] [facility], [address], [place], [address], 03/09/2025 12:03:30 CBC w/ auto diff 2024 025 [employer] [facility], [address], [place], [address], 03/09/2025 12:03:30 T4, free, serum 2024 025 [employer] [facility], [address], [place], [address], 03/09/2025 12:03:32 TSH, serum or plasma 2024 025 [employer], [address], [place], [address], 03/09/2025 12:03:29 lipid panel, serum 2024 025 [employer], [address], [place], [address], 03/09/2025 12:03:28 HbA1c (hemoglob in A1c), blood 2024 025 [employer] [facility], [address], [place], [address], 01/19/2025 13:07:31 microalbu min, urine 2024 025 [employer] [facility], [address], [place], [address], 01/19/2025 13:07:31 PSA, serum or plasma 2024 025 [employer] [facility], [address], [place], [address], 01/19/2025 13:07:29 CMP, serum or plasma 2024 025 [facility] [facility], [address], [place], [address], 01/19/2025 13:07:30 CBC w/ auto diff 2024 025 [facility] [facility], [address], [place], [address], 01/19/2025 13:07:34 T4, free, serum 2024 025 [employer], [address], [place], [address], 01/19/2025 13:07:32 TSH, serum or plasma 2024 025 [facility] [facility], [address], [place], [address], 01/19/2025 13:07:33 lipid panel, serum 2024 025 [facility] [facility], [address], [place], [address], 01/19/2025 13:07:33 HbA1c (hemoglob in A1c), blood 2023 024 [place] [address] [employer] [facility], [address], [place], [address], 01/06/2025 08:57:53 microalbu min, urine 2023 024 [place] [address] [employer] [facility], [address], [place], [address], 01/06/2025 08:57:54 PSA, serum or plasma 2023 024 [employer] [facility], [address], [place], [address], 07/09/2024 12:28:17 CMP, serum or plasma 2023 024 [employer] [facility], [address], [place], [address], 10/17/2024 15:46:55 CBC w/ auto diff 2023 024 [employer] [facility], [address], [place], [address], 10/17/2024 15:46:55 T4, free, serum 2023 024 [email or web address] [facility], [address], [place], [address], 01/06/2025 08:57:53 TSH, serum or plasma 2023 024 [email or web address] [facility], [address], [place], [address], 01/06/2025 08:57:53 lipid panel, serum 2023 024 [email or web address] [facility], [address], [place], [address], 01/06/2025 08:57:53 CMP, serum or plasma 2023 024 [employer] [facility], [address], [place], [address], 03/21/2024 12:21:27 CBC w/ auto diff 2023 024 [employer] [facility], [address], [place], [address], 05/02/2024 12:56:20 T4, free, serum 2023 024 [email or web address] [facility], [address], [place], [address], 07/09/2024 09:46:08 TSH, serum or plasma 2023 024 [email or web address], [address], [place], [address], 07/09/2024 09:46:08 lipid panel, serum 2023 024 [place] [address] [employer], [address], [place], [address], 07/09/2024 09:46:08 HbA1c (hemoglob in A1c), blood 2023 024 [place] [address] [employer] [facility], [address], [place], [address], 07/09/2024 09:46:08 microalbu min, urine 2023 024 [place] [address] [employer] [facility], [address], [place], [address], 07/09/2024 09:46:08 Referral podiatris t referral - Please call patient to schedule an appointme nt. Thank you. 2024 025 SONIA Jimenez DPM, [address] [facility] [address], [place], [address], 03/09/2025 16:30:21 otolaryng ologist referral - Please call patient to schedule an appointme nt. Thank you. 2024 025 DA Rajput MD, [address], [place], [address], 03/09/2025 15:05:25 hematolog ist referral - Please call patient to schedule an appointme nt. Thank you. 2024 025 DA Shaw MD, [address], [place], [address], 03/09/2025 15:15:25 podiatris t referral - Please call patient to schedule an appointme nt. Thank you. 2024 025 SONIA Jimenez DPM, [address], [place], [address], 04/23/2025 04:19:32 hematolog ist referral - Please call patient to schedule an appointme nt. Thank you. 2024 025 tram Shaw MD, [address], [place], [address], 02/20/2025 09:59:08 podiatris t referral 2023 024 [email or web address] Sidney Jimenez DPM, [address], [address], [place], [address], 01/06/2025 08:00:38 pulmonolo gist referral 2023 024 [place], [address] [facility], [address], [place], [address], 07/11/2024 09:29:05 gastroent erologist referral 2023 024 [email or web address] Caitlin Abel MD, [address], [address], [place], [address], 08/04/2024 09:54:56 cardiolog ist referral 2023 024 [email or web address] Cameron Mahan MD, [address], [address], [place], [address], 01/06/2025 08:00:37 urologist referral 2023 024 [email or web address] Olman Maurer MD, [address], [address], [place], [address], 11/03/2024 09:02:48 podiatris t referral 2023 024 [email or web address] Jimenez DPM, [address], [address], [place], [address], 07/09/2024 09:46:21 pulmonolo gist referral 2023 024 [email or web address] [place], [address], [address], [place], [address], 08/04/2024 09:54:04 gastroent erologist referral 2023 024 [email or web address] Caitlin Abel MD, [address], [address], [place], [address], 02/04/2024 15:11:10 cardiolog ist referral 2023 024 [email or web address] Cameron Mahan MD, [address] [facility], [address], [place], [address], 08/04/2024 09:53:52 Procedures cerumen removal (PROC) 2024 025 Not available 03/12/2025 15:02:07 Surgeries None recorded. Imaging CT, chest, w/o contrast [address] ([facility]), [address] [place], [address], 01/19/2025 11:26:55 CT, chest, w/o contrast 2023 024 [facility] ([facility]), [address] [place], [address], 01/08/2024 10:48:07 Medication Orders None recorded. Patient TargetsNo targets recorded. Patient Instructions Encounter Date Encounter Id Patient Instructions Last Modified By Organization Details Last Modified Time 01/07/2024 [id number] diabetic eye exam* [email or web address] Not available 07/09/2024 09:45:44 03/09/2025 [id number] diabetic eye exam* [email or web address] Not available 03/09/2025 14:55:20 03/12/2025 [id number] advised use of weekly Debrox to aid in softening cerumen. Follow-up in 6 months to 1 year for routine ear cleaning. He will contact the office at a later date. [email or web address] Not available 03/12/2025 15:02:41 Reason for Referral Machine Operator Packaging Referral for Es sential hypertension Referring Physician: Paige Balderas Internal Medicine, Encounter Date: 01/07/2024 Welding Manager Referral for Hype rglycemia Referring Physician: Paige Balderas Internal Medicine, Encounter Date: 01/07/2024 Senior Office Assistant Referral for S olitary nodule of lung Referring Physician: Jacey Yeung Medicine, Encounter Date: 01/07/2024 Client Portfolio Manager Referral for Liver function test above reference range Referring Physician: Jacey Yeung Medicine, Encounter Date: 01/07/2024 Urologist Referral for Cysti tis Referring Physician: Jacey Yeung Medicine, Encounter Date: 01/07/2024 Machine Operator Packaging Referral for Es sential hypertension Referring Physician: Jacey Yeung Medicine, Encounter Date: 07/07/2024 Welding Manager Referral for Hype rglycemia Referring Physician: Jacey Yeung Medicine, Encounter Date: 07/07/2024 Senior Office Assistant Referral for S olitary nodule of lung Referring Physician: Jacey Yeung Medicine, Encounter Date: 07/07/2024 Client Portfolio Manager Referral for Liver function test above reference range Referring Physician: Jacey Yeung Medicine, Encounter Date: 07/07/2024 Welding Manager Referral for Hype rglycemia Please call patient to schedule an appointment. Thank you. Referring Physician: Jacey Yeung, Encounter Date: 01/19/2025 Please call patient to sched ule an appointment. Thank you. Referring Physician: Paige Balderas, Internal Medicine, Encounter Date: 01/19/2025 Welding Manager Referral for Hype rglycemia Please call patient to schedule an appointment. Thank you. Referring Physician: Paige Balderas, Internal Medicine, Encounter Date: 03/09/2025 Please call patient to sched ule an appointment. Thank you. Referring Physician: Paige Balderas, Internal Medicine, Encounter Date: 03/09/2025 Farm Equipment Mechanic Apprentice Referral fo r Impacted cerumen of bilateral ears Please call patient to schedule an appointment. Thank you. Referring Physician: Paige Balderas, Internal Medicine, Encounter Date: 03/09/2025 Results Created Date Observation Date Name Description Value Unit Range Abnormal Flag Note LastModifiedBy Organization Detail LastModifiedTime 01/08/20 24 11/27/2023 CT, chest , w/o contr ast No observ ation record ed. [facility] ([facility]) [address] [place], [address], 03/05/2025 11:16:47 Result Notes None recorded. Problems Name Problem SNOMED Code Status Onset Date Resolution Date Notes Provider Name and Address Organization Details Recorded Time Renewal of prescripti on Active 2021 Not Available [facility] 3 05:10:56 Hyperlipid emia 19284154 Active 2017 Not Available [employer] 3 05:10:56 Hyperglyce meera 23777648 Active 2021 Not Available [facility] 3 05:10:56 Pain of right wrist 4905387203761 00 Active 2022 DRU Carlos, [facility] [employer] [facility] 3 16:11:18 Osteoarthr itis of wrist 743514257 Active 2022 DRU Carlos, [place] Demario [facility] 3 16:11:30 Arthritis of right wrist 7830968357007 103 Active 2022 Bakari Christine MD [address], [address], [place], [address] , [facility] 3 12:40:47 Leukopenia 35861838 Active 2022 Paige howell MD [address], [address], [place], [address] , [facility] 3 18:20:02 Liver function test above reference range 777199756 Active 2022 Paige howell MD [address], [address], [place], [address] , [facility] 3 18:20:10 Essential hypertensi on 76919241 Active 2022 Paige howell MD [address], [address], [place], [address] , [facility] 3 18:20:14 Solitary nodule of lung 707878529 Active 2022 Paige howell MD [address], [address], [place], [address] , [facility] 3 18:20:21 Ganglion cyst of right hand 9966534709897 07 Active 2022 Paige howell MD [address], [address], [place], [address] , [facility] 3 18:20:34 Abdominal pain 10639641 Active 2022 Ladi cai [place] [facility] 3 13:30:23 Increased frequency of urination 879676753 Active 2022 Ladi cai [place] [facility] 3 13:31:21 Acute cystitis 50852647 Active 2022 Ladi cai [place] [facility] 3 14:30:48 Cystitis 36722614 Active 2023 Paige howell MD [address], [address], [place], [address] , [facility] 4 11:26:03 Tinea corporis 23657281 Active 2023 Paige howell MD [address], [address], [place], [address] , [facility] 4 14:07:31 Skin lesion 22886403 Active 2023 Kierra Denise MA null, [facility] 4 16:12:52 Prediabete s 346865953 Active 2024 Paige howell MD [address], [address], [place], [address] , [facility] 5 12:58:44 Erectile dysfunctio n 748288806 Active 2024 DRU Navarro null, [facility] 5 17:41:46 Transient cerebral ischemia 741210056 Active 2024 Paige howell MD [address], [place], [address] , [facility] 5 11:48:44 Impacted cerumen of bilateral ears 6419953518772 108 Active 2024 Paige howell MD [address], [place], [address] , [facility] 5 12:08:30 Problem Notes None recorded. Procedures Surgical History Date Name Laterality Status Provider Name and Address Organization Details Recorded Time Dental completed Not Available [facility] 11/2022 05:05:00 Imaging Results None recorded. Procedure Notes None recorded. Medical Equipment None Reported. Allergies No known drug allergies Medications Name Sig Start Date Stop Date Status Note LastModified by Organization Details LastModified Time losartan 50 mg tablet TAKE 1 TABLET BY MOUTH DAILY active Not Available Not Available No t Available amoxicillin 500 mg capsule bid 05/04 completed Not Available Not Available Not Available aspirin 81 mg capsule Take by oral route. 01/15 completed Not Available Not Available Not Available atorvastati n 40 mg tablet TAKE 1 TABLET BY MOUTH DAILY DIRECTED active Not Available Not Available No t Available doxycycline hyclate 100 mg capsule TAKE 1 CAPSULE BY MOUTH DAILY FOR 4 WEEKS 01/07 completed Not Available Not Available Not Available atorvastati n 20 mg tablet TAKE ONE TABLET BY MOUTH EVERY DAY 01/10 completed Not Available Not Available Not Available sildenafil 50 mg tablet TAKE 1 TABLET BY MOUTH 2 TIMES A WEEK NEEDED active Not Available Not Available No t Available hydrocodone 5 mg-acetamin ophen 325 mg tablet 05/04 completed Not Available Not Available Not Available isosorbide mononitrate ER 30 mg tablet,exte nded release 24 hr TAKE 1 TABLET BY MOUTH EVERY DAY active Not Available Not Available No t Available Mobic 7.5 mg tablet Take 1 tablet twice a day by oral route as needed for 30 days. 07/03 completed Not Available Not Available Not Available ciprofloxac in 500 mg tablet TAKE 1 TABLET BY MOUTH EVERY 12 HOURS 01/07 completed Not Available Not Available Not Available peg-electro lyte solution 420 gram oral solution MIX AND DRINK UTD - 1/2 AT 5PM ON 01/29 ANF THE OTHER HALF AT 5AM 3/7 05/09 completed Not Available Not Available Not Available fenofibrate micronized 200 mg capsule TAKE ONE CAPSULE BY MOUTH EVERY DAY 12/26 completed Not Available Not Available Not Available aspirin 81 mg tablet,casper yed release Take 1 tablet every day by oral route. 2017 active Not Available Not Available Not Avai lable triamcinolo ne acetonide 0.1 % topical cream APPLY A THIN LAYER TO THE AFFECTED AREA(S) BY TOPICAL ROUTE 2 TIMES PER DAY active Not Available Not Available No t Available hydrocodone 7.5 mg-acetamin ophen 325 mg tablet TAKE 1 TABLET BY MOUTH EVERY 6 HOURS NEEDED FOR PAIN 07/11 completed Not Available Not Available Not Available cephalexin 500 mg capsule 07/12 completed Not Available Not Available Not Available triamcinolo ne acetonide 0.1 % topical ointment 01/15 completed Not Available Not Available Not Available clotrimazol e-betametha sone 1 %-0.05 % topical cream prn 05/09 completed Not Available Not Available Not Available Drysol Dab-O-Matic 20 % topical solution ЕКАТЕРИНА AA NIGHTLY UTD 01/15 completed Not Available Not Available Not Available furosemide 20 mg tablet TAKE 1 TABLET BY MOUTH ONCE DAILY DIRECTED. USE WHEN HAVING HIGH SODIUM DIET DISCUSSED . active Not Available Not Available No t Available clobetasol 0.05 % topical ointment active Not Available Not Available Not Available ketoconazol e 2 % topical cream APPLY TO AFFECTED AREA ON FEET DAILY active Not Available Not Available No t Available Laxative (bisacodyl) 5 mg tablet TK ALL 6 TABLETS AT 8AM 3/6 05/09 completed Not Available Not Available Not Available alfuzosin ER 10 mg tablet,exte nded release 24 hr TAKE 1 TABLET BY MOUTH DAILY 01/07 completed Not Available Not Available Not Available zinc 2020 active Not Available Not Available Not Avai lable Vitamin D 2020 active Not Available Not Available Not Avai lable vitamin E (dl, acetate) 180 mg (400 unit) capsule Take by oral route. active Not Available Not Available No t Available B12 2020 active Not Available Not Available Not Avai lable Fluvirin 5484-3125 45 mcg (15 mcg x 3)/0.5 mL intramuscul ar suspension active Not Available Not Available N ot Available Fluarix Quad (PF) 60 mcg (15 mcg x 4)/0.5 mL IM syringe active Not Available Not Available N ot Available Fluzone Quad (PF) 60 mcg (15 mcg x 4)/0.5 mL IM syringe ADM 0.5ML IM UTD 05/04 completed Not Available Not Available Not Available Vitals Date Recorded Body height Body mass index (BMI) Body weight Body temperature Heart rate Systolic blood pressure Diastolic blood pressure Provider Name and Address Organization Details Last Updated DateTime 4 180.34 cm 26.6 kg/m2 46651.1 4 g 97.4 [degF] 72 /min 110 mm[Hg] 60 mm[Hg] Melissa Chirinos Julio C [facility] [employer] [facility] 4 11:11:34 Date Recorded Body height Body mass index (BMI) Body weight Body temperature Heart rate Systolic blood pressure Diastolic blood pressure Provider Name and Address Organization Details Last Updated DateTime 5 180.34 cm 26.6 kg/m2 61586.1 4 g 98.4 [degF] 72 /min 142 mm[Hg] 80 mm[Hg] Melissa Chirinos Julio C [facility] [employer] [facility] 5 12:33:55 Date Recorded Body height Body mass index (BMI) Body weight Body temperature Heart rate Systolic blood pressure Diastolic blood pressure Provider Name and Address Organization Details Last Updated DateTime 5 180.34 cm 26.6 kg/m2 23853.1 4 g 97.6 [degF] 72 /min 130 mm[Hg] 77 mm[Hg] Melissa Chirinos Julio C [facility] [employer] [facility] 5 11:38:56 Date Recorded Body height Body mass index (BMI) Body weight Body temperature Provider Name and Address Organization Details Last Updated DateTime 03/12/2025 180.34 cm 26.6 kg/m2 03404.99 g 97.5 [degF] Cierra Brooks RN [facility] [employer] [facility] 03/12/2025 14:51:28 Date Recorded Body height Body mass index (BMI) Body weight Body temperature Heart rate Oxygen saturation Oxygen saturation in Arterial blood by Pulse oximetry Systolic blood pressure Diastolic blood pressure Provider Name and Address Organization Details Last Updated DateTime 4 180.34 cm 26.4 kg/m2 57180.9 6 g 98.3 [degF] 71 /min 95 % 95 % 124 mm[Hg] 84 mm[Hg] Brittanie Penaloza MA [facility] [employer] [facility] 4 11:54:51 Social History Question Answer Notes LastModified by Organizat ion Details LastModified Time Tobacco Smoking Status Never Smoker Not Available [employer] 01/24/2023 05:02:27 Do You Have An Advance Directive? No [id number] Information not available 01/24/2023 What Is Your Level Of Caffeine Consumption? Heavy Information not available 07/11/2023 In The 14 Days Before Symptom Onset, Have You Had Close Contact With A Laboratory-confir med COVID-19 While That Case Was Ill? No [id number] Information not available 01/24/2023 In The 14 Days Before Symptom Onset, Have You Had Close Contact With A Person Who Is Under Investigation For COVID-19 While That Person Was Ill? No [id number] Information not available 01/24/2023 What Type Of Diet Are You Following? REGULAR [id number] Information not available 01/24/2023 What Is The Highest Grade Or Level Of School You Have Completed Or The Highest Degree You Have Received? [id number] Information not available 07/11/2023 Have There Been Any Changes To Your Family Or Social Situation? No Information no t available 07/11/2023 What Is The Fluoride Status Of Your Home? Unknown Information not available 07/11/2023 Do You Use Insect Repellent Routinely? No Information not available 07/11/2023 Where Do You Live? [facility] Information not available 07/11/2023 Do You Have A Medical Power Of Photolettering Machine Operator? No [id number] Information not available 01/24/2023 What Was The Date Of Your Most Recent Tobacco Screening? 03/09/2025 Information not available 03/09/2025 How Many Children Do You Have? -1 Information not available 07/07/2024 Do You Have Any Pets? No Information not available 07/11/2023 What Is Your Relationship Status? Information not available 07/11/2023 Do You Use Your Seat Belt Or Car Seat Routinely? Yes Information not available 07/07/2024 Do You Have Smoke And Carbon Monoxide Detectors In Your Home? Yes Information not available 07/11/2023 Are You Passively Exposed To Smoke? Yes Information no t available 07/11/2023 Are There Any Smokers In Your House? No Information not available 07/11/2023 Do You Use Sunscreen Routinely? No Information not available 07/11/2023 Has Tobacco Cessation Counseling Been Provided? No N/a Information not available 03/09/2025 Have You Recently Traveled Abroad? No [id number] Information not available 01/24/2023 Sex: Unknown Functional Status Question Answer Note LastModified by Organizat ion Details LastModified Time Do you use any illicit or recreational drugs? No Information not available 07/11/2023 Do you or have you ever used any other forms of tobacco or nicotine? No [id number] Information not available 01/24/2023 What is your level of alcohol consumption? Moderate Information not available 07/11/2023 Are you currently employed? 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 None [id number] Information not available 01/24/2023 Mental Status Question Answer Note LastModified by Organization D etails LastModified Time Do you feel stressed (tense, restless, nervous, or anxious, or unable to sleep at night)? [id number] Information not available 07/07/2024 Family History Relationship Description Onset Age of this Age Resolved Age Notes LastModified by Organization Details LastModified Time Unspecified Relation Family history of diabetes mellitus [id number] Not available 01/24/2023 05:05:02 Unspecified Relation Family history of stroke [id number] Not available 01/24/2023 05:05:02 Notes:dm, stroke, CA NO ENT Medical History Condition Response NERVE DISEASE N BLINDNESS N RHEUMATIC FEVER N KIDNEY STONES N BLADDER PROBLEMS N MRSA N OTHER # 1 N POLIO N LUNG DISEASE/DISORDER N HISTORY OF DRUG ABUSE N RADIATION / CHEMOTHERAPY N COPD N Other # 2 N BLOOD DISEASES N EAR OR HEARING PROBLEMS N MUMPS N SHINGLES N BOWEL PROBLEMS N DEPRESSION (INCLUDING POST ) N STROKE/TIA N ULCERS N BENIGN PROSTATIC HYPERPLASIA N MEASLES N HYPOTENSION N MYOCARDIAL INFARCTION N OBESITY N GERD/NAUSEA N ANEURYSM N URINARY/BLADDER/KIDNEY PROBLEMS N CORONARY ARTERY DISEASE (CAD) N ADDICTION CONCERNS N ENDOMETRIOSIS N Impotence N USE OF BLOOD THINNERS Y SKIN PROBLEMS N GASTROINTESTINAL DISORDER N PERIPHERAL VASCULAR DISEASE N MUSCLE,JOINT OR BONE PROBLEMS N GASTROINTESTINAL BLEEDING N BLOOD CLOTS N ASTHMA N CATARACTS N ERECTILE DYSFUNCTION N VARICOSITIES N GI PROBLEMS N Low Testosterone N INFERTILITY N AIDS/HIV N CHEMOTHERAPY / RADIATION N LIVER DISEASE N MALE HYPOGONADISM N HYPERTENSION N Deficiency N TOURETTE'S N ANXIETY DISORDER N BLOOD TRANSFUSION N ANEMIA/BLOOD DISORDER N CHRONIC EAR INFECTIONS N BRONCHITIS N TUBERCULOSIS N GLAUCOMA N FOOT PROBLEM N DIVERTICULITIS N CHICKENPOX N SLEEP APNEA N INFECTIOUS DISEASE N HEART ARRHYTHMIA N PROSTATE N INSOMNIA N HIGH CHOLESTEROL / HYPERLIPIDEMIA N HYPERTHYROIDISM N EYE PROBLEMS N EDEMA N CHRONIC PAIN SYNDROME N HYPOTHYROIDISM N CAROTID BLOCKAGE N CONSTIPATION N BACK / NECK PROBLEMS N ATHEROSCLEROSIS N BREAST PROBLEMS N DIALYSIS N ECZEMA N OSTEOPOROSIS N ARTHRITIS N APPENDICITIS N DIABETES, TYPE N BAD TEETH N ENT N HEARTBURN / REFLUX N AUTISM SPECTRUM DISORDER (ASD) N HEPATITIS / LIVER DISEASE N GOUT N SLEEP DISORDER N ALZHEIMER'S DISEASE N Brain Problems N HERPES N DEMENTIA N HEADACHES/MIGRAINES N SEIZURES/EPILEPSY N VASCULAR DISEASE N PACEMAKER N Blood Disorder N DIZZINESS N HEART DISEASE/HEART PROBLEMS N KIDNEY DISEASE N MULTIPLE SCLEROSIS N CARDIAC ARRHYTHMIA N CANCER: SPECIFY N ATRIAL FIBRILLATION N Gall Stones N PULMONARY EMBOLISM N AUTOIMMUNE DISEASE N Immunizations Vaccine Type Date Status Note Provider Nam e and Address Organization Details Recorded Time COVID-19, mRNA, LNP-S, PF, 100 mcg/0.5mL dose or 50 mcg/0.25mL dose completed Not Available [facility] 01/24/2023 05:17:34 Influenza, split virus, quadrivalent, preservative 9 completed Not Available [facility] 01/24/2023 05:17:35 Influenza, split virus, quadrivalent, preservative 8 completed Not Available [facility] 01/24/2023 05:17:35 influenza, unspecified formulation 7 completed Not Available [facility] 01/24/2023 05:17:35 Tdap 8 completed Not Available [facility] 01/24/2023 05:17:35 Past Encounters Encounter ID Performer Location Encounter Start Date Encounter Closed Date Diagnosis/Indication Diagnosis SNOMED-CT Code Diagnosis ICD10 Code Diagnosis Note [id number] Paige howell MD [facility] [place] [address] [facility] [address] , [place] [address] 05/04/2021 00:00:00 05/04/2021 14:09:42 [id number] Paige howell MD [facility] Internal Med [facility] [address] [place] [address] 05/10/2021 00:00:00 05/10/2021 14:35:19 [id number] MD KENAN Alatorre_[facility] Internal Med [place] [address] [place] [address] [place] [address] 08/03/2021 00:00:00 08/03/2021 10:10:40 [id number] MD KE[facility]N [facility] [place] [address] [place] [address] [place] [address] 12/26/2021 00:00:00 12/26/2021 09:39:15 [id number] MD [facility] [place] [address] [place] [address] [place] [address] 07/12/2022 00:00:00 07/12/2022 16:17:13 [id number] Paige howell MD [facility] Internal Med [place] [place] [address] 01/10/2023 00:00:00 01/10/2023 12:13:07 [id number] Bakari Christine MD [facility] Orth[facility] [place] [address] [facility] [address] [place] [address] 01/23/2023 00:00:00 01/23/2023 12:19:13 [id number] Bakari Christine MD [facility] [place] [address] [place] [address] 02/28/2023 15:59:14 02/28/2023 16:31:55 Pain of right wrist [id number] 17251 M25.531 Osteoarthr itis of wrist 437266718 M19.039 remove sutures. Put a well-molde d short-arm cast. We will see him back for follow-up in 3 weeks and a cast change. Repeat x-ray out of the cast when he is 6-8 weeks postop [id number] Bakari Christine MD [facility] Orth[facility] [place] [address] [place] [address] 03/20/2023 15:39:26 03/20/2023 16:38:34 Pain of right wrist [id number] 82893 M25.531 Osteoarthr itis of wrist 305454182 M19.039 x-rays today show the four-corne r fusion all in good position no evidence of any hardware loosening good carpal alignment. We put him in a protective brace now which he can take off just for showering otherwise he will wear 18/06. I will see him back for x-rays out of his brace of his right wrist in 2-3 weeks. If he has good solid union of his four-corne r fusion then he can progress on to therapy [id number] Bakari Christine MD [facility] [place] [address] [place] [address] 04/10/2023 11:14:34 04/10/2023 11:53:02 Pain of right wrist [id number] 58680 M25.531 Osteoarthr itis of wrist 549308045 M19.039 Arthritis of right wrist 8026018571 578255 M13.831 patient can discontinu e the brace. He can use it for heavy activity if he likes. We will get him in therapy to work on range of motion modalities and strengthen ing. I will see him back in 6 weeks for AP and lateral x-rays of his right wrist again [id number] Bakari Christine MD [facility] Ortho [place] [address] [place] [address] 05/22/2023 11:17:33 05/22/2023 11:40:53 Pain of right wrist [id number] 34612 M25.531 Osteoarthr itis of wrist 013545178 M19.039 [id number] Paige howell MD [facility] Internal [place] [address] [facility] [place] [address] 07/11/2023 11:05:15 07/11/2023 12:03:56 Screening - NAD [id number] Z13.9 01/30/18: C-scope; Dr Newman: next in 10 years UTD on flu shot 09/22/19, get yearlyTdap 01/15/18UT D on COVID 19 RTC in 6 monthdo labsER if worsehe and his Jennifer did verbalize his understand ing of the above Hyperlipidemia 46515549 E78.5 On ASAOn atorvastat in 40mg daily, increased by Dr Mahan Does wellGet labs Hyperglycemia 16774348 R 73.9 Get an A1C level done Leukopenia 86775093 D72. 819 OV 08/03/2021 :Repeat the CBC again OV 12/26/2021 :Has seen Dr Sloan OV 09/21/2021 , labs provided to show Dr Shaw from 12/21/2021 OV 07/11/2023 : Does well Liver func tion test above reference range 867698351 R79.89 OV 08/03/2021 :Advised to cut back and quit any alcohol, he does drink 3-4 beers dailyGet US liver, hep panel and GGT OV 12/26/2021 :LFTs WNL 12/21/2021 US liver 09/22/2021 : Fatty liver OV 01/10/2023 :Get US liver OV 07/11/2023 : Get US Liver done Essential hypertension 29838229 I10 CT calcium 04/06/2022 Stress test 04/25/2022 ECHO 05/04/2022 : Dr Aguiar carotid 05/04/2022 Dr Mahan 09/07/2022 On isosorbide On losartan 50mg daily Solitary n odule of lung 165433521 R91.[address] chest in [place] Was told to see pulmonolog ist Dr Huseyin galvan yst of right hand [id number] 70488 M67.[address] Get a referral [address] Nanci Christine 04/10/2023 Grey Bangura 05/22/2023 , f/u PRN [id number] Paige howell MD [facility] [address] [facility] [place] [address] 01/07/2024 10:59:40 01/07/2024 11:53:22 Screening - NAD [id number] Z13.9 01/30/18: C-scope; Dr Newman: next in 10 years UTD on flu shot 09/22/19, get yearlyTdap 01/15/18UT D on COVID 19 RTC in 6 monthdo labsER if worsehe and his Jennifer did verbalize his understand ing of the above Hyperlipidemia 41251869 E78.5 On ASAOn atorvastat in 40mg daily, increased by Dr Mahan Does wellGet labs Hyperglycemia 32741595 R 73.9 Get an A1C level done Leukopenia 21149794 D72. 819 OV 08/03/2021 :Repeat the CBC again OV 12/26/2021 :Has seen Dr Sloan OV 09/21/2021 , labs provided to show Dr Shaw from 12/21/2021 OV 07/11/2023 : Does well OV 01/07/2024 : Does see Dr Rodriguez 09/03/2023 WNL Liver func tion test above reference range 796491488 R79.89 OV 08/03/2021 :Advised to cut back and quit any alcohol, he does drink 3-4 beers dailyGet US liver, hep panel and GGT OV 12/26/2021 :LFTs WNL 12/21/2021 US liver 09/22/2021 : Fatty liver OV 01/10/2023 :Get US liver OV 07/11/2023 : Get US Liver done US liver 07/31/2023 : Hepatomega ly CT A/P: 11/12/2023 : Hepatic steatosisC MP: 12/28/2023 : LFTs WNLAdvised to not consume ETOH! Essential hypertension 26722452 I10 CT calcium 04/06/2022 Stress test 04/25/2022 ECHO 05/04/2022 : Dr MahanUS carotid 05/04/2022 Dr Mahan 09/07/2022 On isosorbide On losartan 50mg daily Solitary n odule of lung 317289363 R91.[address] chest in [place] Was told to see pulmonolog ist Dr Huseyin galvan yst of right hand [id number] 09220 M67.441 Get a referral to Dr Nanci Christine 04/10/2023 Grey Bangura 05/22/2023 , f/u PRN Cystitis 89565898 N30.90 CT A/P 11/12/2023 : Bladder wall thickening Get a referral to urology Tinea corporis 05011557 B35.4 Round red excoriated about 2 inch lesion noted on the L LE Send for ketoconazo le [id number] Paige howell MD [facility] [place] [address] [place] [address] 07/07/2024 11:37:40 07/07/2024 12:43:08 Screening - NAD 336332484 Z13.9 01/30/18: C-scope; Dr Newman: next in 10 years UTD on flu shot 09/22/19, get yearlyTdap 01/15/18UT D on COVID 19Can do shingrix vaccineCan do RSV vaccine RTC in 6 monthdo labsER if worsehe and his Jennifer did verbalize his understand ing of the above Hyperlipidemia 10181161 E78.5 On ASAOn atorvastat in 40mg daily, increased by Dr Mahan Does wellGet labs Hyperglycemia 88548745 R 73.9 Get an A1C level done Leukopenia 30465240 D72. 819 OV 08/03/2021 :Repeat the CBC again OV 12/26/2021 :Has seen Dr Sloan OV 09/21/2021 , labs provided to show Dr Shaw from 12/21/2021 OV 07/11/2023 : Does well OV 01/07/2024 : Does see Dr Rodriguez 09/03/2023 WNL OV 07/07/2024 :CBC 07/01/2024 : WNL Liver func tion test above reference range 086362849 R79.89 OV 08/03/2021 :Advised to cut back and quit any alcohol, he does drink 3-4 beers dailyGet US liver, hep panel and GGT OV 12/26/2021 :LFTs WNL 12/21/2021 US liver 09/22/2021 : Fatty liver OV 01/10/2023 :Get US liver OV 07/11/2023 : Get US Liver done US liver 07/31/2023 : Hepatomega ly CT A/P: 11/12/2023 : Hepatic steatosisC MP: 12/28/2023 : LFTs WNLAdvised to not consume ETOH! OV 07/07/2024 :Needs to see [facility] WNL 07/01/2024 Essential hypertension 38726796 I10 CT calcium 04/06/2022 Stress test 04/25/2022 ECHO 05/04/2022 : Dr Aguiar carotid 05/04/2022 Dr Mahna 09/07/2022 On isosorbide On losartan 50mg daily Solitary n odule of lung 778198130 R91.1 CT Chest 11/27/2023 Was told to see pulmonolog ist Dr Fontanez Ganglion c yst of right hand [id number] 15700 M67.441 Get a referral to Dr Nanci Christine 04/10/2023 Grey Bangura 05/22/2023 , f/u PRN Cystitis 71216096 N30.90 CT A/P 11/12/2023 : Bladder wall thickening Dr Maurer 12/04/2023 , f/u PRN Tinea corporis 18262614 B35.4 Round red excoriated about 2 inch lesion noted on the L LE Send for ketoconazo le Screening for malignant neoplasm of prostate 361799281 Z12.5 [id number] Paige howell MD S_[facility] Primary Care [address] [place] [address] 01/19/2025 11:41:26 01/19/2025 13:13:23 Screening - NAD 268708011 Z13.9 01/30/18: C-scope; Dr Newman: next in 10 years UTD on flu shot 09/22/19, get yearlyTdap 01/15/18UT D on COVID 19Can do shingrix vaccineCan do RSV vaccine RTC in 6 monthdo labsER if worsehe and his Jennifer did verbalize his understand ing of the above Hyperlipidemia 61596930 E78.5 On ASAOn atorvastat in 40mg daily, increased by Dr Mahan Does wellGet labs Hyperglycemia 60219373 R 73.9 Get an A1C level done Leukopenia 51429411 D72. 819 OV 08/03/2021 :Repeat the CBC again OV 12/26/2021 :Has seen Dr Sloan OV 09/21/2021 , labs provided to show Dr Shaw from 12/21/2021 OV 07/11/2023 : Does well OV 01/07/2024 : Does see Dr GregoryBC 09/03/2023 WNL OV 07/07/2024 :CBC 07/01/2024 : WNL OV 01/19/2025 : Now will see Dr Shaw Liver func tion test above reference range 290080227 R79.89 OV 08/03/2021 :Advised to cut back and quit any alcohol, he does drink 3-4 beers dailyGet US liver, hep panel and GGT OV 12/26/2021 :LFTs WNL 12/21/2021 US liver 09/22/2021 : Fatty liver OV 01/10/2023 :Get US liver OV 07/11/2023 : Get US Liver done US liver 07/31/2023 : Hepatomega ly CT A/P: 11/12/2023 : Hepatic steatosisC MP: 12/28/2023 : LFTs WNLAdvised to not consume ETOH! OV 07/07/2024 :Needs to see GI/LFTs WNL 07/01/2024 OV 01/19/2025 :Keep apt with Dr Abel 02/24/2025 Essential hypertension 86179262 I10 CT calcium 04/06/2022 Stress test 04/25/2022 ECHO 05/04/2022 : Dr Aguiar carotid 05/04/2022 Dr Mahan 09/07/2022 , next apt 03/05/2025 On isosorbide On losartan 50mg daily Solitary n odule of lung 076771798 R91.1 CT Chest 11/27/2023 CT Chest 11/26/22 25 as per his history Was told to see pulmonolog ist Dr Huseyin Woodson c yst of right hand [id number] 35709 M67.441 Get a referral to Dr Nanci Christine 04/10/2023 Grey Huler 05/22/2023 , f/u PRN Cystitis 57500009 N30.90 CT A/P 11/12/2023 : Bladder wall thickening Dr Maurer 12/04/2023 , f/u PRN Tinea corporis 79013921 B35.4 Round red excoriated about 2 inch lesion noted on the L LE Send for ketoconazo le Screening for malignant neoplasm of prostate 579687790 Z12.5 [id number] Paige howell MD [facility] Primary [facility] [address] [facility] [address] [place] [address] 03/09/2025 11:29:37 03/09/2025 12:09:10 Screening - NAD 800967442 Z13.9 01/30/18: C-scope; Dr Newman: next in 10 years UTD on flu shot 09/22/19, get yearlyTdap 01/15/18Ge t COVID 19 boostersCa n do prevnar #20Can do shingrix vaccineCan do RSV vaccine RTC in 1.5 monthsdo labsER if worseHe did verbalize his understand ing of the above, also spoke with Jennifer on the phone today 03/09/2025 Hyperlipidemia 49425059 E78.5 On ASAOn atorvastat in 80mg daily, increased by the hospitalis t 02/20/2025 Does wellGet labs Hyperglycemia 90536918 R 73.9 Get an A1C level doneDeclin ed any medication Is to see eye referred 03/09/2025 Leukopenia 26366597 D72. 819 OV 08/03/2021 :Repeat the CBC again OV 12/26/2021 :Has seen Dr Sloan OV 09/21/2021 , labs provided to show Dr Shaw from 12/21/2021 OV 07/11/2023 : Does well OV 01/07/2024 : Does see Dr Rodriguez 09/03/2023 WNL OV 07/07/2024 :CBC 07/01/2024 : WNL OV 01/19/2025 : Now will see Dr Shaw OV 03/09/2025 : See Dr Shaw referred 03/09/2025 Liver func tion test above reference range 134030952 R79.89 LFTs WNL 12/21/2021 US liver 09/22/2021 : Fatty liver US liver 07/31/2023 : Hepatomega ly CT A/P: 11/12/2023 : Hepatic steatosisC MP: 12/28/2023 : LFTs WNLAdvised to not consume ETOH! LFTs WNL 07/01/[address] Abel Essential hypertension 42162382 I10 CT calcium 04/06/2022 Stress test 04/25/2022 ECHO 05/04/2022 : Dr MahanUS carotid 05/04/2022 Dr Mahan 09/07/2022 , next apt 03/05/2025 On isosorbide On losartan 50mg dailyOn lasix 20mg daily Solitary n odule of lung 874779818 R91.1 CT Chest 11/27/2023 CT Chest 11/26/22 25 as per his history Was told to see pulmonolog ist Dr oFntanez Ganglion c yst of right hand [id number] 73325 M67.441 Get a referral to Dr Nanci Christine 04/10/2023 Grey Bangura 05/22/2023 , f/u PRN Cystitis 09421485 N30.90 CT A/P 11/12/2023 : Bladder wall thickening Dr Maurer 12/04/2023 , f/u PRN Tinea corporis 44032413 B35.4 Round red excoriated about 2 inch lesion noted on the L LE Send for ketoconazo le Screening for malignant neoplasm of prostate 619697768 Z12.5 Transient cerebral ischemia 622637424 G45.9 R eye blurry visionS/p stenosis of P1/P2S/p D/c from [facility] 02/20/[address] Mahan Impacted c erumen of bilateral ears [id number] 194781 H61.23 [id number] Huber Rajput MD [facility] [place] [address] [place] [address] 03/12/2025 14:43:01 03/12/2025 15:03:28 Impacted cerumen of bilateral ears 1212759318 611565 H61.23 cerumen impaction successful ly removed with irrigation Health Concerns Section Related Observation LastModified by Organization Detai ls LastModified Time None Recorded Concern Status LastModified by Organization Details LastModified Time None Recorded Advance Directives Directive N: Payers Encounter Date Sequence Insurance Name Policy Number Policy Munoz Covered Member ID Munoz Member ID Guarantor Name 01/07/2024 1 [place] [id number] Maico Lopezrin [id number] Maico Lopezrin 07/07/2024 1 [place] [id number] Maico York [id number] Maico York 01/19/2025 1 [place] [id number] Maico York [id number] Maico Lopezrin 03/09/2025 1 [place] [id number] Maico Lopezrin [id number] Maico Ureña 03/12/2025 1 [place] [id number] Maico Lopezrin [id number] Maico Ureña Notes Date Note Type Note Provider Name and Address Organization Details Recorded Time 01/07/2024 text/html 01/15/18Here to establish carePrior PMD Dr Byrd Hx:HLDReviewed social family and surgical historyHe is on some antibiotics for tooth problems, is doing well, here to see if he needs to do labsOV 05/09/18:Here for his routine follow upHe states that he is doing well at this timeHe did do the labs on 05/02/18 and is here to review these OV 08/08/18:Here for his routine apHe is doing well at this timeHe did do the labs 08/02/18Has a lesion on the lef tpalm since 2 weeks, not itchyOV 11/14/18Here for his routine aptHe states that he is doing wellHe did do the labs on 11/08/18 OV 02/13/19:Here for his routine aptHe is doing well todayHe did do the labs on 02/07/19OV 04/03/19:C/o R knee pain, c/o pain medially, no radiation,No N/T in the legs, 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 has noted the pain since 2 monthsNo direct trauma, no remote trauma noted OV 07/03/19:Here for his routine aptIs doing well at this timeNo recent labsHe does have a swelling on the R forearm that is tender especially when he turns his wristNormal gripHe is RHDOV 06/28/2020:Here for his routine visitHe feels wellHe did do the PSA the other labs were not doneHe also has not seen the hand surgeon yet wants another referral as the prior referral was cancelled d/t COVID 19OV 05/04/2021:Here for his routine aptHe feels well, he did do the labsHe did do the labs on 05/02/2021OV 05/10/2021:Here for ACV:Feels that he has a 'wax buildup' in the L earNo ear pain, no d/cNo fever or chillsNo dizziness notedC/o some 'ringing in the ear'OV 08/03/2021:Here for his routine aptHe is doing wellHe did do the labsOV 12/26/2021:Here for his routine aptHe is doing wellHe did do the labs on 12/21/2021 OV 07/12/2022:Here for his routine apt, he is doing well, did have a CC done by Dr Mahan, also labs done on 07/07/2022V 01/10/2023:Here for his f/u apt, he did do the labs, does c/o of R wrist cyst, now hurts to turn his wrist, wants to get this checked out, he is R HD OV 07/11/2023: Here for his f/u apt, he is doing well, here with his and he did do the labs OV 01/07/2024: Here for his f/u apt, he feels well, here with his Paige Balderas MD [address] [facility], [place], [address], [facility] [employer] 01/08/2024 14:08:21 07/07/2024 text/html 01/15/18Here to establish carePrior PMD Dr Byrd Hx:HLDReviewed social family and surgical historyHe is on some antibiotics for tooth problems, is doing well, here to see if he needs to do labsOV 05/09/18:Here for his routine follow upHe states that he is doing well at this timeHe did do the labs on 05/02/18 and is here to review these OV 08/08/18:Here for his routine apHe is doing well at this timeHe did do the labs 08/02/18Has a lesion on the lef tpalm since 2 weeks, not itchyOV 11/14/18Here for his routine aptHe states that he is doing wellHe did do the labs on 11/08/18 OV 02/13/19:Here for his routine aptHe is doing well todayHe did do the labs on 02/07/19OV 04/03/19:C/o R knee pain, c/o pain medially, no radiation,No N/T in the legs, 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 has noted the pain since 2 monthsNo direct trauma, no remote trauma noted OV 07/03/19:Here for his routine aptIs doing well at this timeNo recent labsHe does have a swelling on the R forearm that is tender especially when he turns his wristNormal gripHe is RHDOV 06/28/2020:Here for his routine visitHe feels wellHe did do the PSA the other labs were not doneHe also has not seen the hand surgeon yet wants another referral as the prior referral was cancelled d/t COVID 19OV 05/04/2021:Here for his routine aptHe feels well, he did do the labsHe did do the labs on 05/02/2021OV 05/10/2021:Here for ACV:Feels that he has a 'wax buildup' in the L earNo ear pain, no d/cNo fever or chillsNo dizziness notedC/o some 'ringing in the ear'OV 08/03/2021:Here for his routine aptHe is doing wellHe did do the labsOV 12/26/2021:Here for his routine aptHe is doing wellHe did do the labs on 12/21/2021 OV 07/12/2022:Here for his routine apt, he is doing well, did have a CC done by Dr Mahan, also labs done on 2OV 01/10/2023:Here for his f/u apt, he did do the labs, does c/o of R wrist cyst, now hurts to turn his wrist, wants to get this checked out, he is R HD OV 07/11/2023: Here for his f/u apt, he is doing well, here with his and he did do the labs OV 01/07/2024: Here for his f/u apt, he feels well, here with his OV 07/07/2024: Here for his routine apt, he is doing very well, he is here with his Paige Balderas MD [address] [facility], [place], [address], [facility] [employer] 07/07/2024 12:39:09 01/19/2025 text/html 01/15/18Here to establish carePrior PMD Dr Byrd Hx:HLDReviewed social family and surgical historyHe is on some antibiotics for tooth problems, is doing well, here to see if he needs to do labsOV 05/09/18:Here for his routine follow upHe states that he is doing well at this timeHe did do the labs on 05/02/18 and is here to review these OV 08/08/18:Here for his routine apHe is doing well at this timeHe did do the labs 08/02/18Has a lesion on the lef tpalm since 2 weeks, not itchyOV 11/14/18Here for his routine aptHe states that he is doing wellHe did do the labs on 11/08/18 OV 02/13/19:Here for his routine aptHe is doing well todayHe did do the labs on 02/07/19OV 04/03/19:C/o R knee pain, c/o pain medially, no radiation,No N/T in the legs, 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 has noted the pain since 2 monthsNo direct trauma, no remote trauma noted OV 07/03/19:Here for his routine aptIs doing well at this timeNo recent labsHe does have a swelling on the R forearm that is tender especially when he turns his wristNormal gripHe is RHDOV 06/28/2020:Here for his routine visitHe feels wellHe did do the PSA the other labs were not doneHe also has not seen the hand surgeon yet wants another referral as the prior referral was cancelled d/t COVID 19OV 05/04/2021:Here for his routine aptHe feels well, he did do the labsHe did do the labs on 05/02/2021OV 05/10/2021:Here for ACV:Feels that he has a 'wax buildup' in the L earNo ear pain, no d/cNo fever or chillsNo dizziness notedC/o some 'ringing in the ear'OV 08/03/2021:Here for his routine aptHe is doing wellHe did do the labsOV 12/26/2021:Here for his routine aptHe is doing wellHe did do the labs on 12/21/2021 OV 07/12/2022:Here for his routine apt, he is doing well, did have a CC done by Dr Mahan, also labs done on 2OV 01/10/2023:Here for his f/u apt, he did do the labs, does c/o of R wrist cyst, now hurts to turn his wrist, wants to get this checked out, he is R HD OV 07/11/2023: Here for his f/u apt, he is doing well, here with his and he did do the labs OV 01/07/2024: Here for his f/u apt, he feels well, here with his OV 07/07/2024: Here for his routine apt, he is doing very well, he is here with his OV 01/19/2025: Here for his routine apt, he feels well here with his Paige Balderas MD [address], [place], [address], [place] [facility] [employer] 01/19/2025 18:13:31 03/09/2025 text/html 01/15/18Here to establish carePrior PMD Dr Byrd Hx:HLDReviewed social family and surgical historyHe is on some antibiotics for tooth problems, is doing well, here to see if he needs to do labsOV 05/09/18:Here for his routine follow upHe states that he is doing well at this timeHe did do the labs on 05/02/18 and is here to review these OV 08/08/18:Here for his routine apHe is doing well at this timeHe did do the labs 08/02/18Has a lesion on the lef tpalm since 2 weeks, not itchyOV 11/14/18Here for his routine aptHe states that he is doing wellHe did do the labs on 11/08/18 OV 02/13/19:Here for his routine aptHe is doing well todayHe did do the labs on 02/07/19OV 04/03/19:C/o R knee pain, c/o pain medially, no radiation,No N/T in the legs, 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 has noted the pain since 2 monthsNo direct trauma, no remote trauma noted OV 07/03/19:Here for his routine aptIs doing well at this timeNo recent labsHe does have a swelling on the R forearm that is tender especially when he turns his wristNormal gripHe is RHDOV 06/28/2020:Here for his routine visitHe feels wellHe did do the PSA the other labs were not doneHe also has not seen the hand surgeon yet wants another referral as the prior referral was cancelled d/t COVID 19OV 05/04/2021:Here for his routine aptHe feels well, he did do the labsHe did do the labs on 05/02/2021OV 05/10/2021:Here for ACV:Feels that he has a 'wax buildup' in the L earNo ear pain, no d/cNo fever or chillsNo dizziness notedC/o some 'ringing in the ear'OV 08/03/2021:Here for his routine aptHe is doing wellHe did do the labsOV 12/26/2021:Here for his routine aptHe is doing wellHe did do the labs on 12/21/2021 OV 07/12/2022:Here for his routine apt, he is doing well, did have a CC done by Dr Mahan, also labs done on 2OV 01/10/2023:Here for his f/u apt, he did do the labs, does c/o of R wrist cyst, now hurts to turn his wrist, wants to get this checked out, he is R HD OV 07/11/2023: Here for his f/u apt, he is doing well, here with his and he did do the labs OV 01/07/2024: Here for his f/u apt, he feels well, here with his OV 07/07/2024: Here for his routine apt, he is doing very well, he is here with his OV 01/19/2025: Here for his routine apt, he feels well here with his OV 03/09/2025: Here for his f/u apt, he is doing well today, s/p d/c from [place] for TIA, did see Dr Mahan now has to see eye doctor Paige Balderas MD [address], [place], [address], [facility] 03/09/2025 12:09:44 03/12/2025 text/html This patient a past history significant for HLD HTN TIA and arthritis who presents to the office with a complaint bilateral cerumen impaction that has been present for many months. He states that he followed up with his PCP proximally 2 weeks ago noting that there was still cerumen impacted despite use of Debrox on occasion. Denies any otalgia and or hearing loss. NADIA Lam [address], [place], [address], [facility] [employer] 03/12/2025 15:02:45
--- OUTSIDE RECORDS SUMMARY | 2025-04-23 10:11 | XMS_ITS | Encounter Summary ---
Author Organization [facility] Address 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 Gender Identity Not on file Sexual Orientation Not on file documented as of this encounter Plan of Treatment Upcoming Encounters Date Type Department Care Team (Late st Contact Info) Description 04/30/2025 3:30 PM CDT Office Visit [facility] Oncology and Hematology - [place] [address] [facility] [address] [place] [address] Jeremiah Shaw MD [address] [facility] [address] [place] [address] documented as of this encounter Visit Diagnoses Diagnosis Male infertility, unspecified- Primary documented in this encounter Care Teams Ingot Car Operator Relationship Specialty Start Date End Date Paige Balderas MD PCP - General Internal Medicine 08/27/20 documented as of this encounter
[2025-04-23 10:18] LABS: Basophils Percent Auto 0.5 % (0.2-1.2); Eosinophils Absolute Auto 0.5 K/mm3 (0-0.3); Eosinophils Percent Auto 9.2 % (0-4.4); Hemoglobin 15.7 g/dL (14.0-18.0); Immature Granulocyte Absolute 0.02 K/mm3 (0.00-0.031); Immature Granulocyte Percent A 0.3 % (0-0.5); Lymphocytes Absolute Auto 0.92 K/mm3 (0.9-3.2); Lymphocytes Percent Auto 15.6 % (18.3-44.2); Mean Corpuscular HGB Conc 34.9 g/dl (32-36); Mean Corpuscular Volume 91.8 fl (80-100); Mean Platelet Volume 8.5 fl (7.4-10.4); Monocytes Absolute Auto 0.5 K/mm3 (0.1-0.6); Monocytes Percent Auto 8.8 % (2.6-8.5); Neutrophils Absolute Auto 3.9 K/mm3 (1.3-6.7); Neutrophils Percent Auto 65.6 % (45.5-73.1); Platelet Count Result 228 k/mm3 (150-375); Red Cell Distribution Width 11.7 % (11.5-14.5); White Blood Count 5.9 K/mm3 (4.5-10.0)
[2025-04-23 10:56] LABS: Iron 128 ug/dL (49-181)
[2025-04-23 10:57] LABS: Alanine Aminotransferase 37 U/L (6-50); Albumin Level 4.7 g/dL (3.5-5.1); Alkaline Phosphatase 71 U/L (38-126); Anion Gap 10 mmol/L (4-12); Aspartate Amino Transferase 38 U/L (17-59); Bilirubin,Total 0.7 mg/dL (0.2-1.3); Blood Urea Nitrogen 13 mg/dL (9-20); Calcium 9.6 mg/dL (8.4-10.2); Carbon Dioxide 27 mmol/L (22-30); Chloride 98 mmol/L (98-107); Estimated Glomerular Filt Rate > 60; Glucose 119 mg/dL (65-110); Potassium 4.5 mmol/L (3.4-5.0); Sodium 135 mmol/L (137-145)
[2025-04-23 11:05] LABS: Percent Iron Saturation 48 % (20-50)
[2025-04-23 11:59] LABS: Folic Acid 7.8 ng/mL (2.76->20)
== END 2025-04-23 10:07 | disposition home or self-care (01) ==
LOC: ANHLAB 10:08
PROVIDERS: PCP Internal Medicine; Visit Provider Internal Medicine Hematology & Oncology
DX: E83.110 Hereditary hemochromatosis (principal)
CPT/HCPCS: 36415; 80053; 82607; 82728; 82746; 83540; 83550; 85025

== ENCOUNTER 2025-10-29 10:17 | Outpatient (CLI) | payer BC, MEDICARE, SELFPAY ==
[2025-10-29 10:42] LABS: Hematocrit 45.0 % (42.0-52.0); Hemoglobin 15.7 g/dL (14.0-18.0); Mean Corpuscular HGB Conc 34.9 g/dl (32-36); Mean Corpuscular Hemoglobin 32.5 pg (26-34); Mean Corpuscular Volume 93.2 fl (80-100); Platelet Count Result 209 k/mm3 (150-375); Red Blood Count 4.83 M/mm3 (4.6-6.20); White Blood Count 5.2 K/mm3 (4.5-10.0)
--- OUTSIDE RECORDS SUMMARY | 2025-10-29 11:32 | XMS_ITS | Clinical Summary ---
Author Organization [facility] Address [address] [facility] [place] [address] Care Team Providers Care Medical Office Clerk Name Role Phone Unknown, Provider Primary Care Provider Unavaila ble Source Comments [facility],non-owned Affiliates and Associated Physician Practices is amultiple site organization consisting of ambulatory clinics and hospital sitesin [place], [place], [place] and [place]. This disclosure is being madepursuant to the Care Everywhere program and may not contain all information available regarding this patient. Last updated [facility] Active Problems Problem Noted Date Diagnosed Date Fatty liver 03/12/2025 Social History Tobacco Use Types Packs/Day Years [...] 2010 ZOSTER VACCINE (1 of 2) 2010 DEPRESSION SCREENING 11/26/2024 COVID-19 VACCINE (2 - 2024- season) 2025 07/13/2021 INFLUENZA VACCINE (#1) 2025 9, 09/09/2018, 09/18/2017, Additional history exists Respiratory Syncytial [...] on patient's age to complete this topic Insurance ANTHEM Care Teams Medical Office Clerk Relationship Specialty Start Date End Date Unknown, Provider PCP - General 03/12/25
--- OUTSIDE RECORDS SUMMARY | 2025-10-29 11:32 | XMS_ITS | Clinical Summary ---
Author Organization [facility] Address [address] [facility] [address] [place] [address] Phone Care Team Providers Care Contracts Paralegal Name Role Phone French Woodruff DPM Unavailable [phone] Provider, None Primary Care Provider Unavailabl [...] Comments Blood Pressure 125/70 11/21/2017 7:00 AM TABLE GAMES DUAL RATE SUPERVISOR Pulse 76 11/21/2017 7:00 AM TABLE GAMES DUAL RATE SUPERVISOR Temperature 36.4 C (97.6 F) 11/21/2017 7:00 AM TABLE GAMES DUAL RATE SUPERVISOR Respiratory Rate 18 11/21/2017 7:00 AM TABLE GAMES DUAL RATE SUPERVISOR Oxygen Saturation 95% 11/21/2017 7:00 AM TABLE GAMES DUAL RATE SUPERVISOR Inhaled Oxygen Concentration - - Weight 81.6 kg (180 lb) 11/05/2017 9:00 AM TABLE GAMES DUAL RATE SUPERVISOR Height 180.3 cm (5' 11) 11/05/2017 9:00 AM TABLE GAMES DUAL RATE SUPERVISOR Body Mass Index 25.1 11/05/2017 9:00 AM TABLE GAMES DUAL RATE SUPERVISOR Plan of Treatment Health Maintenance Due Date Last Done Comments Hepatitis C Virus (HCV) Screening 1960 TdaP Immunization 1960 Cologuard 2005 Immunochemical Fecal Occult Blood 2005 Pneumococcal Immunization (5 0+ years) (2 of 2 - PCV) 2010 04/26/2008 Zoster Immunization (1 of 2) 2010 Colonoscopy 08/23/2021 08/23/2011 Colorectal Cancer Screening 08/23/2021 Influenza Immunization (#1) 2025 1002/2017, 08/26/2014 SARS-COV-2 Immunization (1 - 2024- season) 2025 Respiratory Syncytial Virus (RSV) Immunization (Adult) (1 - 1-dose 75+ series) 2035 Pneumococcal Immunization Combined Discontinued 04/26/2008 Hepatitis B Immunization Aged Out No longer eligible based on patient's age to complete this topic Human Papillomavirus (HPV) Immunization Aged Out No longer eligible based on patient's age to complete this topic Meningococcal Immunization (ACWY) Aged Out No longer eligible based on patient's age to complete this topic Rotavirus Immunization Aged Out No lo nger eligible based on patient's age to complete this topic Procedures Procedure Name Priority Date/Time Associated Diagnosis Comments COLONOSCOPY Routine 08/23/2011 from Last 3 Months or Most Recently Relevant to Health Maintenance Results * COLONOSCOPY (08/23/2011) Ulysses Feldman DO PROCEDURE/MINOR SURGICAL ORDERA BLES Edited Result - Final from Last 3 Months or Most Recently Relevant to Health Maintenance Care Teams Contracts Paralegal Relationship Specialty Start Date End Date Provider, None [place] PCP - General 05/11/21 French Woodruff DPM Podiatry 11/23/16
--- OUTSIDE RECORDS SUMMARY | 2025-10-29 11:32 | XMS_ITS | Clinical Summary ---
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 Gender Identity Not on file Sexual Orientation Not on file Last Filed Vital Signs Vital Sign Reading Time Taken Comments Blood Pressure 132/84 04/30/2025 2:59 PM CDT Pulse 78 04/30/2025 2:59 PM CDT Temperature 36.9 C (98.4 F) 04/30/2025 2:59 PM CDT Respiratory Rate 15 04/30/2025 2:59 PM CDT Oxygen Saturation 96% 04/30/2025 2:59 PM CDT Inhaled Oxygen Concentration - - Weight 86.6 kg (191 lb) 04/30/2025 2:59 PM CDT Height 180.3 cm (5' 11) 08/29/2022 12:05 PM CDT Body Mass Index 26.64 08/29/2022 12:05 PM CDT Plan of Treatment Upcoming Encounters Date Type Department Care Team (Late st Contact Info) Description 11/03/2025 11:45 AM RESIDENTIAL MANAGER Office Visit [facility] Oncology and Hematology - [place] [address] [place] [address] [facility] [address] [place] [address] Jeremiah Shaw MD [address] [facility] [address] [place] [address] Health Maintenance Due Date Last Done Comments Pre-Diabetes and Diabetes Screening 1960 FIT-DNA Q 3 years 2005 FIT/FOBT Q 1 year 2005 Flex Sig/CT Colonography Q 5 years 2005 PNEUMOCOCCAL VACCINE 50+ YEA RS (2 of 2 - PCV) 2010 04/26/2008 ZOSTER VACCINE (2 of 3) 03/16/2014 01/19/2014 COLORECTAL SCREENING 08/23/2021 08/23/2011 Colorectal Cancer Screening 08/23/2021 Preventative Visit- Commercial 11/26/2024 INFLUENZA VACCINE (#1) 2025 , 12/03/2023, 10/06/2022, Additional history exists DTAP/TDAP/TD VACCINES (2 - T d or Tdap) 01/15/2028 01/15/2018 RSV VACCINE (60+ or ) (1 - 1-dose 75+ series) 2035 Insurance [employer] BLUE PREFERRED Care Teams Tire Buster Relationship Specialty Start Date End Date Paige Balderas MD PCP - General Internal Medicine 08/27/20
--- OUTSIDE RECORDS SUMMARY | 2025-10-29 11:32 | XMS_ITS | Encounter Summary ---
Author Organization [facility] Address [address] [place] [address] Care Team Providers Care Hospice Educator Name Role Phone Paige Balderas MD Primary Care Provider Encounter Details Date Type Department Care Team (Latest Contact Info) Description 02/14/2002 Outpatient Historical [facility], [address] Maria Ramirez, Giovana Ashby MD NO ADDRESS ON FILE MALE INFERTILITY NOS (Primary Dx) Social History Tobacco Use Types Packs/Day Years Used Date Smoking Tobacco: Never Assessed Sex and Gender Information Value Date Recorded Sex Assigned at Not on file Legal Sex Male 5:26 AM DIRECTOR OF ENVIRONMENTAL SERVICES Gender Identity Not on file Sexual Orientation Not on file documented as of this encounter Plan of Treatment Upcoming Encounters Date Type Department Care Team (Late st Contact Info) Description 11/03/2025 11:45 AM DIRECTOR OF ENVIRONMENTAL SERVICES Office Visit [facility] Oncology and Hematology - [place] [address] [facility] [address] [place] [address] Jeremiah Shaw MD [address] [facility] [address] [place] [address] documented as of this encounter Visit Diagnoses Diagnosis Male infertility, unspecified- Primary documented in this encounter Care Teams Hospice Educator Relationship Specialty Start Date End Date Paige Balderas MD PCP - General Internal Medicine 08/27/20 documented as of this encounter
--- OUTSIDE RECORDS SUMMARY | 2025-10-29 11:32 | XMS_ITS | Clinical Summary ---
Author Organization [facility] Address [address] [place] [id number] Care Team Providers Care Assembly Adjuster Name Role Phone Jamey Balderas MD Primary Care Provide r Allergies No known active allergies Medications aspirin 81 mg enteric coated tabletIndicatio ns:cerebral ischemia Take 1 tablet (81 mg total) by mouth daily 02/22/20 25 026 Active isosorbide mononitrate ER (IMDUR) 30 mg 24 hr tablet Take 1 tablet (30 mg total) by mouth daily 02/21/20 25 026 Active atorvastatin (LIPITOR) 80 mg tablet Take 1 tablet (80 mg total) by mouth daily 09/15/20 25 Active furosemide (LASIX) 20 mg tablet Take 1 tablet (20 mg total) by mouth daily 03/05/20 25 Active losartan (COZAAR) 100 mg tablet Take 1 tablet (100 mg total) by mouth daily 09/15/20 25 Active sildenafiL (VIAGRA) 50 mg tablet Take 1 tablet (50 mg total) by mouth as needed for erectile dysfunction Active cholecalciferol (VITAMIN D-3) 2000 unit capsule Take 1 capsule (2,000 Units total) by mouth daily Active zinc sulfate 25 mg zinc (110 mg) tablet Take 50 mg by mouth daily Active vitamin E 400 unit capsule Take 1 capsule (400 Units total) by mouth daily Active vit U-G-ntoooz-zinc -lutein 226-90-0.8-5 mg capsule Take 1 capsule by mouth daily Active meclizine (ANTIVERT) 25 mg tablet Take 1 tablet (25 mg total) by mouth 3 (three) times a day as needed for dizziness 30 tablet 10/27/20 Active atorvastatin (LIPITOR) 40 mg tabletIndicatio ns:Secondary Stroke Prevention Take 2 tablets (80 mg total) by mouth daily 02/22/20 25 025 Discontinued losartan (COZAAR) 50 mg tablet Take 1 tablet (50 mg total) by mouth daily 02/21/20 025 Discontinued Active Problems Problem Noted Date Diagnosed Date Vision changes 02/19/2025 Encounters Date Type Department Care Team Description 10/27/2025 10:31 AM CORN DETASSELER - 10/27/2025 3:55 PM CORN DETASSELER Emergency [facility] Emergency Department [id number] [place] [address] Jocelyne Corrigan MD Croft, Alexander, MD Vertigo (Primary Dx) Discharge Disposition: Discharge to home or self care from Last 3 Months Medical History Medical History Date Comments Ganglion cyst of finger of right hand Solitary pulmonary nodule present on computed to mography of lung Leukopenia Essential hypertension Transient cerebral ischemia Tinea corporis Coronary artery disease Family History Medical History Relation Name Comments [...] making you feel afraid or unsafe? Denies 10/27/2025 Sex and Gender Information Value Date Recorded Sex Assigned at Not on file Legal Sex Male 3:37 AM CORN DETASSELER Gender Identity Not on file Sexual Orientation Not on file Last Filed Vital Signs Vital Sign Reading Time Taken Comments Blood Pressure 149/88 10/27/2025 1:30 PM CORN DETASSELER Pulse 77 10/27/2025 1:40 PM CORN DETASSELER Temperature 36.7 C (98 F) 10/27/2025 11:50 AM CORN DETASSELER Respiratory Rate 14 10/27/2025 1:40 PM CORN DETASSELER Oxygen Saturation 96% 10/27/2025 1:40 PM CORN DETASSELER Inhaled Oxygen Concentration - - Weight 85.8 kg (189 lb 2.5 oz) 02/20/2025 6:45 A M CDT Height 180.3 cm (5' 11) 02/20/2025 6:45 AM CDT Body Mass Index 26.38 02/20/2025 6:45 AM CDT Plan of Treatment Health Maintenance Due Date Last Done Comments Colon Cancer Screening-Colonoscopy 1960 Hepatitis C Screening 1960 Prostate Cancer Screening-PSA 1960 Hepatitis B Screening 1978 Pneumococcal vaccine 65+ (2 of 2 - PCV) 04/26/2009 04/26/2008 Zoster Vaccine (2 of 3) 03/16/2014 01/19/2014 Covid-19 Vaccine (3 - 2024-2 6 season) 2025 07/21/2021, 07/13/2021 Influenza Vaccine (#1) 2025 , 12/03/2023, 10/06/2022, Additional history exists Well Visit 65+ 2025 Depression Screening 02/19/2026 02/19/2025, 02/20/20 25 Fall Risk Assessment 02/20/2026 02/20/2025 DTaP/Tdap/Td Vaccine (2 - Td or Tdap) 01/15/2028 01/15/2018 Procedures Procedure Name Priority Date/Time Associated Diagnosis Comments MRI BRAIN WO CONTRAST ED 10/27/2025 2:46 PM CORN DETASSELER TROPONIN T HIGH-SENSITIVITY 2-HOUR Timed 10/27/2025 12:37 PM CORN DETASSELER XR CHEST 1 VIEW ED 10/27/2025 11:09 AM CORN DETASSELER ECG 12-LEAD STAT 10/27/2025 11:[address] STROKE PROTOCOL W WO CONTRAST Critical/Life-T hreatening 10/27/2025 10:55 AM CORN DETASSELER EGFR STAT 10/27/2025 10:49 AM CORN DETASSELER DIFFERENTIAL AUTO STAT 10/27/2025 10: 49 AM CORN DETASSELER COMPREHENSIVE METABOLIC PANEL STAT 10/27/2025 10:49 AM CORN DETASSELER CBC WITH AUTO DIFFERENTIAL STAT 10/27/2025 10:49 AM CORN DETASSELER TROPONIN T HIGH-SENSITIVITY SERIES (BASELINE, 2HR, 4HR, 6HR) STAT 10/27/2025 10:[address] STROKE PROTOCOL WO CONTRAST Critical/Life-T hreatening 10/27/2025 10:43 AM CORN DETASSELER POCT GLUCOSE DEVICE Routine 10/27/2025 1 0:30 AM CORN DETASSELER from Last 3 Months Results * MRI Brain WO Contrast (10/27/2025 2:46 PM CORN DETASSELER) Anatomical Region Laterality Modality Head and Neck N/A Magnetic Resonan ce 10/27/2025 2:57 PM CORN DETASSELER Impressions 10/27/2025 2:57 PM CORN DETASSELER 1. No acute intracranial findings. 2. No evidence of acute infarct. Electronically signed by: Sara Garcia DO Narrative 10/27/2025 2:57 PM CORN DETASSELER EXAMINATION: Magnetic resonance imaging (MRI) of the brain and brainstem without contrast HISTORY: 5-year-old with neurodeficit, headache, dizziness TECHNIQUE: Multiplanar multi-weighted MRI of the brain and brainstem was performed without intravenous contrast using the general brain protocol. COMPARISON: CT head without contrast and CTA head and neck dated 10/27/2025 FINDINGS: Diffusion weighted images reveal no hyperintensities to suggest acute cerebral infarction. The susceptibility weighted sequences reveal no evidence of acute or chronic hemorrhage. The ventricles are normal in size and position without evidence of hydrocephalus . The scalp and calvarium are normal. The corpus callosum is normal in shape and signal intensity. The posterior fossa is unremarkable. The pituitary and sella are normal. The brainstem and craniocervical junction are unremarkable. The paranasal sinuses are aerated. The visualized portions of the mastoids are unremarkable. The orbits appear normal. Normal flow voids are demonstrated in the intracranial internal carotid arteries and basilar artery. Procedure Note Polanco, Sara Kourtney, DO - 10/27/2025 EXAMINATION: Magnetic resonance imaging (MRI) of the brain and brainstem without contrast HISTORY: 5-year-old with neurodeficit, headache, dizziness TECHNIQUE: Multiplanar multi-weighted MRI of the brain and brainstem was performed without intravenous contrast using the general brain protocol. COMPARISON: CT head without contrast and CTA head and neck dated 10/27/2025 FINDINGS: Diffusion weighted images reveal no hyperintensities to suggest acute cerebral infarction. The susceptibility weighted sequences reveal no evidence of acute or chronic hemorrhage. The ventricles are normal in size and position without evidence of hydrocephalus . The scalp and calvarium are normal. The corpus callosum is normal in shape and signal intensity. The posterior fossa is unremarkable. The pituitary and sella are normal. The brainstem and craniocervical junction are unremarkable. The paranasal sinuses are aerated. The visualized portions of the mastoids are unremarkable. The orbits appear normal. Normal flow voids are demonstrated in the intracranial internal carotid arteries and basilar artery. IMPRESSION: 1. No acute intracranial findings. 2. No evidence of acute infarct. Electronically signed by: Sara Garcia DO Jocelyne Corrigan MD IMG MRI PROCEDUR ES Final Result * Troponin T high-sensitivity 2-hour (10/27/2025 12:37 PM CORN DETASSELER) Trop T hs 12 <=22 ng/L Comment: Interpretive Data For further hscTnT resources including the diagnostic algorithm and an aid in interpretation, copy and paste this link: https://nrl.testcatalog.org/show/hsTrop Current Interpretive Data last revised 2020. Slight hemolysis may result in decreased troponin measurement. Consider recollection. Trop T hs delta -1 ng/L KIMMY GUTIERREZ Trop T hs interp Insignificant KIMMY GUTIERREZ Blood 10/27/2025 12:3 7 PM CORN DETASSELER 10/27/2025 12:43 PM CORN DETASSELER Jocelyne Corrigan MD LAB BLOOD ORDERA BLES Final Result KIMMY GUTIERREZ [id number] Department [place] [address] * XR Chest 1 Vw Portable (10/27/2025 11:09 AM CORN DETASSELER) Anatomical Region Laterality Modality Body, Chest N/A Computed Radiogr aphy 10/27/2025 11:1 6 AM CORN DETASSELER Impressions 10/27/2025 11:16 AM CORN DETASSELER No active disease. Electronically signed by: Shikha Palacios M.D. Narrative 10/27/2025 11:16 AM CORN DETASSELER EXAMINATION: XR CHEST 1 VIEW HISTORY: The patient is a 65-year-old male who presents with dizziness. Comparison made with the previous study dated 07/06/2023. TECHNIQUE: AP portable view of the chest. FINDINGS: Lungs clear. Cardiovascular structures unremarkable. Procedure Note Shikha Palacios MD - 10/27/2025 EXAMINATION: XR CHEST 1 VIEW HISTORY: The patient is a 65-year-old male who presents with dizziness. Comparison made with the previous study dated 07/06/2023. TECHNIQUE: AP portable view of the chest. FINDINGS: Lungs clear. Cardiovascular structures unremarkable. IMPRESSION: No active disease. Electronically signed by: Shikha Palacios M.D. Jocelyne Corrigan MD IMG XR PROCEDURE S Final Result * ECG 12 lead (10/27/2025 11:03 AM CORN DETASSELER) 10/27/2025 11:0 3 AM CORN DETASSELER Narrative [facility] - 10/27/2025 9:21 PM CORN DETASSELER Vent Rate: 83 bpm RR Interval: 717 msec UT Interval: 184 msec QRS Duration: 88 msec QT Interval: 362 msec QTC Interval: 402 msec P-R-T [place]: 39 - 15 - 32 degrees IMPRESSION: SINUS RHYTHM NORMAL ECG Electronically Signed By: Abdifatah Cooper MD Jocelyne Corrigan MD ECG ORDERABLES Final Result [facility] [place] * CTA Stroke Head Neck W WO Contrast (10/27/2025 10:55 AM CORN DETASSELER) Anatomical Region Laterality Modality Head and Neck N/A Computed Tomogra phy 10/27/2025 11:0 9 AM CORN DETASSELER Impressions 10/27/2025 11:09 AM CORN DETASSELER 1. No acute intracranial hemorrhage, significant mass effect, or midline shift. 2. No large arterial occlusion identified in the head or neck. 3. 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 The potentially Critical results regarding noncontrast head CT were discussed with Dr. Jocelyne Butcher by Dr. Sara Garcia on 10/27/2025 10:48 AM. CTA results discussed with Dr. Drake by Dr. Garcia on 10/27/2025 at 11:08 am. Electronically signed by: Sara Garcia DO Narrative 10/27/2025 11:09 AM CORN DETASSELER EXAMINATION: Computed tomography angiography (CTA) of the head without and with contrast; Computed tomography angiography (CTA) of the neck with contrast. HISTORY: Posterior headache, dizziness, right arm numbness/tingling. TECHNIQUE: Computed tomography of the head was performed without contrast according to standard protocol. Computed tomographic angiography was obtained from the level of the aortic arch to the vertex following the uneventful administration of intravenous contrast according to hyperacute stroke protocol. 3D images were generated on a dedicated workstation. Contrast information: 93 mL [id number]-350 COMPARISON: CT head dated 02/19/2025. CTA head and neck dated 02/19/2025 FINDINGS: HEAD CT FINDINGS: There is no acute intracranial hemorrhage. Ventricles are of normal size and morphology. No mass effect or midline shift is present. The higgins-white matter differentiation appears maintained. Mild generalized parenchymal volume loss. Atherosclerotic calcification of the intracranial arteries. The visualized portions of the orbits are without acute abnormality identified. The mastoid air cells are clear. The visualized portions of the paranasal sinuses are aerated. No acute fractures are identified. ANGIOGRAPHIC FINDINGS: The visualized aortic arch is atherosclerotic with normal configuration of the great vessels. There is no significant stenosis of the origins of the great vessels with atherosclerosis present in the proximal left subclavian artery. Left anterior circulation: L CCA: no occlusion or significant stenosis. Atherosclerosis L carotid bifurcation: no occlusion or significant stenosis. Atherosclerosis L ICA proximal: no occlusion or significant stenosis. Atherosclerosis L ICA distal: no occlusion or significant stenosis. Atherosclerosis L ICA terminus: no occlusion or significant stenosis L M1: no occlusion or significant stenosis L M2 branches: no occlusion or significant stenosis L A2: no occlusion or significant stenosis Right anterior circulation: R CCA: no occlusion or significant stenosis R carotid bifurcation: no occlusion or significant stenosis R ICA proximal: no occlusion or significant stenosis R ICA distal: no occlusion or significant stenosis R ICA terminus: no occlusion or significant stenosis R M1: no occlusion or significant stenosis R M2 branches: no occlusion or significant stenosis R A2: no occlusion or significant stenosis Posterior circulation: L Vertebral Artery: no occlusion. Atherosclerosis. R Vertebral Artery: no occlusion. Atherosclerosis. Basilar Artery: no occlusion or significant stenosis L STATION WORKER: no occlusion. Multifocal severe stenosis beginning at the P1-P2 junction extending distally, similar in appearance to 02/19/2025 exam.. R STATION WORKER: no occlusion or significant stenosis No CTA evidence of cerebral aneurysm is seen. There is no CTA evidence for a high flow arteriovenous malformation. There is no suspicious cervical lymphadenopathy. Multilevel degenerative changes are present in the visualized spine. Minimal dependent atelectasis in the visualized upper lungs. Procedure Note Sara Polanco, DO - 10/27/2025 EXAMINATION: Computed tomography angiography (CTA) of the head without and with contrast; Computed tomography angiography (CTA) of the neck with contrast. HISTORY: Posterior headache, dizziness, right arm numbness/tingling. TECHNIQUE: Computed tomography of the head was performed without contrast according to standard protocol. Computed tomographic angiography was obtained from the level of the aortic arch to the vertex following the uneventful administration of intravenous contrast according to hyperacute stroke protocol. 3D images were generated on a dedicated workstation. Contrast information: 93 mL Optiray-350 COMPARISON: CT head dated 02/19/2025. CTA head and neck dated 02/19/2025 FINDINGS: HEAD CT FINDINGS: There is no acute intracranial hemorrhage. Ventricles are of normal size and morphology. No mass effect or midline shift is present. The higgins-white matter differentiation appears maintained. Mild generalized parenchymal volume loss. Atherosclerotic calcification of the intracranial arteries. The visualized portions of the orbits are without acute abnormality identified. The mastoid air cells are clear. The visualized portions of the paranasal sinuses are aerated. No acute fractures are identified. ANGIOGRAPHIC FINDINGS: The visualized aortic arch is atherosclerotic with normal configuration of the great vessels. There is no significant stenosis of the origins of the great vessels with atherosclerosis present in the proximal left subclavian artery. Left anterior circulation: L CCA: no occlusion or significant stenosis. Atherosclerosis L carotid bifurcation: no occlusion or significant stenosis. Atherosclerosis L ICA proximal: no occlusion or significant stenosis. Atherosclerosis L ICA distal: no occlusion or significant stenosis. Atherosclerosis L ICA terminus: no occlusion or significant stenosis L M1: no occlusion or significant stenosis L M2 branches: no occlusion or significant stenosis L A2: no occlusion or significant stenosis Right anterior circulation: R CCA: no occlusion or significant stenosis R carotid bifurcation: no occlusion or significant stenosis R ICA proximal: no occlusion or significant stenosis R ICA distal: no occlusion or significant stenosis R ICA terminus: no occlusion or significant stenosis R M1: no occlusion or significant stenosis R M2 branches: no occlusion or significant stenosis R A2: no occlusion or significant stenosis Posterior circulation: L Vertebral Artery: no occlusion. Atherosclerosis. R Vertebral Artery: no occlusion. Atherosclerosis. Basilar Artery: no occlusion or significant stenosis L STATION WORKER: no occlusion. Multifocal severe stenosis beginning at the P1-P2 junction extending distally, similar in appearance to 02/19/2025 exam.. R STATION WORKER: no occlusion or significant stenosis No CTA evidence of cerebral aneurysm is seen. There is no CTA evidence for a high flow arteriovenous malformation. There is no suspicious cervical lymphadenopathy. Multilevel degenerative changes are present in the visualized spine. Minimal dependent atelectasis in the visualized upper lungs. IMPRESSION: 1. No acute intracranial hemorrhage, significant mass effect, or midline shift. 2. No large arterial occlusion identified in the head or neck. 3. 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 The potentially Critical results regarding noncontrast head CT were discussed with Dr. Jocelyne Butcher by Dr. Sara Garcia on 10/27/2025 10:48 AM. CTA results discussed with Dr. Drake by Dr. Garcia on 10/27/2025 at 11:08 am. Electronically signed by: Sara Loudoun, DO Jocelyne Corrigan MD IMG CT PROCEDURE S Final Result * Troponin T high-sensitivity series (baseline, 2hr, 4hr, 6hr) (10/27/2025 10:49 AM CORN DETASSELER) Trop T hs 13 <=22 ng/L Comment: Interpretive Data For further hscTnT resources including the diagnostic algorithm and an aid in interpretation, copy and paste this link: https://nrl.testcatalog.org/show/hsTrop Current Interpretive Data last revised 2020. Blood 10/27/2025 10:4 9 AM CORN DETASSELER 10/27/2025 10:55 AM CORN DETASSELER Jocelyne Corrigan MD LAB BLOOD ORDERA BLES Final Result KIMMY [id number] Department [place] [address] * eGFR (10/27/2025 10:49 AM CORN DETASSELER) eGFR >90 >=60 mL/min/1. 73 m2 Comment: [...] interpretive data was last reviewed 2021. Blood 10/27/2025 10:4 9 AM CORN DETASSELER 10/27/2025 10:55 AM CORN DETASSELER us Jocelyne Corrigan MD LAB BLOOD ORDERA BLES Final Result KIMMY [id number] Department [place] [address] * Differential, auto (10/27/2025 10:49 AM CORN DETASSELER) Neutrophil abs 3.34 1.50 - 6.50 K/cumm Imm gran abs 0.02 0.00 - 0.10 K/cumm [facility] CH Lymphocyte abs 1.02 0.80 - 3.30 K/cumm [facility] Monocyte abs 0.62 0.20 - 0.80 K/cumm [facility] Eosinophil abs 0.49 0.00 - 0.50 K/cumm [facility] Basophil abs 0.05 0.00 - 0.10 K/cumm [facility] Neutrophil pct 60.3 % [facility] Comment: Interpretive Data Percent cell count reference ranges are not reported, since discordance with absolute values may lead to misinterpretation of CBC data. Current Interpretive Data was last revised on 2018. Imm gran pct 0.4 % [facility] Comment: Interpretive Data Percent cell count reference ranges are not reported, since discordance with absolute values may lead to misinterpretation of CBC data. Current Interpretive Data was last revised on 2018. Lymphocyte pct 18.4 % [facility] Comment: Interpretive Data Percent cell count reference ranges are not reported, since discordance with absolute values may lead to misinterpretation of CBC data. Current Interpretive Data was last revised on 2018. Monocyte pct 11.2 % [facility] Comment: Interpretive Data Percent cell count reference ranges are not reported, since discordance with absolute values may lead to misinterpretation of CBC data. Current Interpretive Data was last revised on 2018. Eosinophil pct 8.8 % [facility] Comment: Interpretive Data Percent cell count reference ranges are not reported, since discordance with absolute values may lead to misinterpretation of CBC data. Current Interpretive Data was last revised on 2018. Basophil pct 0.9 % [facility] Comment: Interpretive Data Percent cell count reference ranges are not reported, since discordance with absolute values may lead to misinterpretation of CBC data. Current Interpretive Data was last revised on 2018. Blood 10/27/2025 10:4 9 AM CORN DETASSELER 10/27/2025 10:55 AM CORN DETASSELER Jocelyne Corrigan MD LAB BLOOD ORDERA BLES Final Result Performing Organization Address [facility] Co de Phone Number KIMMY GUTIERREZ [id number] [place] [address] * (ABNORMAL) CBC with auto differential (10/27/2025 10:49 AM CORN DETASSELER) WBC 5.54 3.80 - 9.90 K/cumm Hgb 15.8 13.0 - 17.5 g/dL [facility] Hct 45.7 38.9 - 50.3 % [facility] Plt 222 150 - 400 K/cumm [facility] MPV 9.0(L) 9.1 - 12.3 fL [facility] RBC 4.92 4.30 - 5.80 M/cumm [facility] MCV 92.9 81.3 - 96.4 fL [facility] MCH 32.1 27.1 - 33.3 pg [facility] MCHC 34.6 32.3 - 35.7 g/dL [facility] RDW CV 11.7 11.1 - 14.9 % [facility] RDW SD 39.6 35.7 - 48.1 fL [facility] NRBC abs 0.00 0.00 - 0.01 K/cumm [facility] Blood 10/27/2025 10:4 9 AM CORN DETASSELER 10/27/2025 10:55 AM CORN DETASSELER Jocelyne Corrigan MD LAB BLOOD ORDERA BLES Final Result Performing Organization Address [facility] [address] [facility] Co de Phone Number KIMMY GUTIERREZ [id number] [place] [place] [address] * Comprehensive metabolic panel (10/27/2025 10:49 AM CORN DETASSELER) Sodium 138 135 - 145 mmol/L Potassium, pl 4.2 3.3 - 4.9 mmol/L [facility] Chloride 101 97 - 110 mmol/L [facility] CO2 23 22 - 32 mmol/L [facility] Anion gap 14 2 - 15 mmol/L [facility] BUN 9 6 - 25 mg/dL [facility] Creatinine 0.84 0.80 - 1.30 mg/dL [facility] Glucose 130 70 - 199 mg/dL [facility] Comment: Interpretive Data Fasting glucose >/= 126 mg/dl [...] interpretive data was last revised 2022. Calcium 9.9 8.5 - 10.3 mg/dL [facility] Bilirubin, total 0.6 0.1 - 1.2 mg/dL [facility] Protein, pl 7.3 6.5 - 8.5 g/dL [facility] Albumin 4.7 3.5 - 5.0 g/dL [facility] Alk phos 77 40 - 130 Units/L [facility] ALT 31 7 - 55 Units/L [facility] AST 27 10 - 50 Units/L [facility] Blood 10/27/2025 10:4 9 AM CORN DETASSELER 10/27/2025 10:55 AM CORN DETASSELER Jocelyne Corrigan MD LAB BLOOD ORDERA BLES Final Result [facility] [id number] Department [place] [address] * CT Stroke Head WO Contrast (10/27/2025 10:43 AM CORN DETASSELER) Anatomical Region Laterality Modality Head N/A Computed Tomogra phy 10/27/2025 11:0 9 AM CORN DETASSELER Impressions 10/27/2025 11:09 AM CORN DETASSELER 1. No acute intracranial hemorrhage, significant mass effect, or midline shift. 2. No large arterial occlusion identified in the head or neck. 3. 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 The potentially Critical results regarding noncontrast head CT were discussed with Dr. Jocelyne Butcher by Dr. Sara Garcia on 10/27/2025 10:48 AM. CTA results discussed with Dr. Drake by Dr. Garcia on 10/27/2025 at 11:08 am. Electronically signed by: Sara Garcia DO Narrative 10/27/2025 11:09 AM CORN DETASSELER EXAMINATION: Computed tomography angiography (CTA) of the head without and with contrast; Computed tomography angiography (CTA) of the neck with contrast. HISTORY: Posterior headache, dizziness, right arm numbness/tingling. TECHNIQUE: Computed tomography of the head was performed without contrast according to standard protocol. Computed tomographic angiography was obtained from the level of the aortic arch to the vertex following the uneventful administration of intravenous contrast according to hyperacute stroke protocol. 3D images were generated on a dedicated workstation. Contrast information: 93 mL Optiray-350 COMPARISON: CT head dated 02/19/2025. CTA head and neck dated 02/19/2025 FINDINGS: HEAD CT FINDINGS: There is no acute intracranial hemorrhage. Ventricles are of normal size and morphology. No mass effect or midline shift is present. The higgins-white matter differentiation appears maintained. Mild generalized parenchymal volume loss. Atherosclerotic calcification of the intracranial arteries. The visualized portions of the orbits are without acute abnormality identified. The mastoid air cells are clear. The visualized portions of the paranasal sinuses are aerated. No acute fractures are identified. ANGIOGRAPHIC FINDINGS: The visualized aortic arch is atherosclerotic with normal configuration of the great vessels. There is no significant stenosis of the origins of the great vessels with atherosclerosis present in the proximal left subclavian artery. Left anterior circulation: L CCA: no occlusion or significant stenosis. Atherosclerosis L carotid bifurcation: no occlusion or significant stenosis. Atherosclerosis L ICA proximal: no occlusion or significant stenosis. Atherosclerosis L ICA distal: no occlusion or significant stenosis. Atherosclerosis L ICA terminus: no occlusion or significant stenosis L M1: no occlusion or significant stenosis L M2 branches: no occlusion or significant stenosis L A2: no occlusion or significant stenosis Right anterior circulation: R CCA: no occlusion or significant stenosis R carotid bifurcation: no occlusion or significant stenosis R ICA proximal: no occlusion or significant stenosis R ICA distal: no occlusion or significant stenosis R ICA terminus: no occlusion or significant stenosis R M1: no occlusion or significant stenosis R M2 branches: no occlusion or significant stenosis R A2: no occlusion or significant stenosis Posterior circulation: L Vertebral Artery: no occlusion. Atherosclerosis. R Vertebral Artery: no occlusion. Atherosclerosis. Basilar Artery: no occlusion or significant stenosis L STATION WORKER: no occlusion. Multifocal severe stenosis beginning at the P1-P2 junction extending distally, similar in appearance to 02/19/2025 exam.. R STATION WORKER: no occlusion or significant stenosis No CTA evidence of cerebral aneurysm is seen. There is no CTA evidence for a high flow arteriovenous malformation. There is no suspicious cervical lymphadenopathy. Multilevel degenerative changes are present in the visualized spine. Minimal dependent atelectasis in the visualized upper lungs. Procedure Note Sara Polanco, DO - 10/27/2025 EXAMINATION: Computed tomography angiography (CTA) of the head without and with contrast; Computed tomography angiography (CTA) of the neck with contrast. HISTORY: Posterior headache, dizziness, right arm numbness/tingling. TECHNIQUE: Computed tomography of the head was performed without contrast according to standard protocol. Computed tomographic angiography was obtained from the level of the aortic arch to the vertex following the uneventful administration of intravenous contrast according to hyperacute stroke protocol. 3D images were generated on a dedicated workstation. Contrast information: 93 mL Optiray-350 COMPARISON: CT head dated 02/19/2025. CTA head and neck dated 02/19/2025 FINDINGS: HEAD CT FINDINGS: There is no acute intracranial hemorrhage. Ventricles are of normal size and morphology. No mass effect or midline shift is present. The higgins-white matter differentiation appears maintained. Mild generalized parenchymal volume loss. Atherosclerotic calcification of the intracranial arteries. The visualized portions of the orbits are without acute abnormality identified. The mastoid air cells are clear. The visualized portions of the paranasal sinuses are aerated. No acute fractures are identified. ANGIOGRAPHIC FINDINGS: The visualized aortic arch is atherosclerotic with normal configuration of the great vessels. There is no significant stenosis of the origins of the great vessels with atherosclerosis present in the proximal left subclavian artery. Left anterior circulation: L CCA: no occlusion or significant stenosis. Atherosclerosis L carotid bifurcation: no occlusion or significant stenosis. Atherosclerosis L ICA proximal: no occlusion or significant stenosis. Atherosclerosis L ICA distal: no occlusion or significant stenosis. Atherosclerosis L ICA terminus: no occlusion or significant stenosis L M1: no occlusion or significant stenosis L M2 branches: no occlusion or significant stenosis L A2: no occlusion or significant stenosis Right anterior circulation: R CCA: no occlusion or significant stenosis R carotid bifurcation: no occlusion or significant stenosis R ICA proximal: no occlusion or significant stenosis R ICA distal: no occlusion or significant stenosis R ICA terminus: no occlusion or significant stenosis R M1: no occlusion or significant stenosis R M2 branches: no occlusion or significant stenosis R A2: no occlusion or significant stenosis Posterior circulation: L Vertebral Artery: no occlusion. Atherosclerosis. R Vertebral Artery: no occlusion. Atherosclerosis. Basilar Artery: no occlusion or significant stenosis L STATION WORKER: no occlusion. Multifocal severe stenosis beginning at the P1-P2 junction extending distally, similar in appearance to 02/19/2025 exam.. R STATION WORKER: no occlusion or significant stenosis No CTA evidence of cerebral aneurysm is seen. There is no CTA evidence for a high flow arteriovenous malformation. There is no suspicious cervical lymphadenopathy. Multilevel degenerative changes are present in the visualized spine. Minimal dependent atelectasis in the visualized upper lungs. IMPRESSION: 1. No acute intracranial hemorrhage, significant mass effect, or midline shift. 2. No large arterial occlusion identified in the head or neck. 3. 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 The potentially Critical results regarding noncontrast head CT were discussed with Dr. Jocelyne Butcher by Dr. Sara Garcia on 10/27/2025 10:48 AM. CTA results discussed with Dr. Drake by Dr. Garcia on 10/27/2025 at 11:08 am. Electronically signed by: Sara Garcia DO Jocelyne Corrigan MD IMG CT PROCEDURE S Final Result * POCT glucose (10/27/2025 10:30 AM CORN DETASSELER) Glucose, POC 130 70 - 199 mg/dL Blood 10/27/2025 10:3 0 AM [employer] 10/27/2025 10:30 AM [employer] Jocelyne Corrigan MD LAB POCT ORDERAB LES - DEVICE Final Result KIMMY GUTIERREZ [id number] Department [place] [address] from Last 3 Months Insurance ANTHE[employer] ACCESS CHOICE BL CHOICE PRF P[place] MEDICARE MEDICARE Advance Directives For more information, please contact: [phone] * Full Code (Latest Code Status on File) Date Activated Date Inactivated Comments 02/19/2025 9:18 PM 02/20/2025 5:01 PM Care Teams Assembly Adjuster Relationship Specialty Start Date End Date Jamey Balderas MD [id number] [id number] PCP - General 05/31/22
[2025-10-29 13:09] LABS: Iron 114 ug/dL (49-181)
[2025-10-29 13:22] LABS: Percent Iron Saturation 44 % (20-50)
[2025-10-29 13:51] LABS: Ferritin 195.00 ng/mL (11.1-264)
== END 2025-10-29 10:18 | disposition home or self-care (01) ==
LOC: ANHLAB 10:23
PROVIDERS: PCP Internal Medicine; Visit Provider Internal Medicine Hematology & Oncology
DX: E83.110 Hereditary hemochromatosis (principal)
CPT/HCPCS: 36415; 82728; 83540; 83550; 85027